=== PATIENT | female | born 1965 | race Caucasian/White ===

== ENCOUNTER → 2021-04-10 02:02 | Outpatient (CLI) | payer BC, SELFPAY ==
[2021-04-10 12:23] LABS: SARS-CoV-2 RNA PCR Negative
== END ==
PROVIDERS: Visit Provider Orthopaedic Surgery
DX: Z01.812 Encounter for preprocedural laboratory examination (principal); Z20.822 Contact with and (suspected) exposure to COVID-19
CPT/HCPCS: C9803; U0003; U0005

== ENCOUNTER 2021-04-13 00:15 | Day surgery (SDC) | payer BC, SELFPAY ==
[2021-04-05 15:16] VITALS: BMI 36.1
--- NOTE | 2021-04-05 15:19 | PC.NURSE ---
Report to the Outpatient Waiting Room, entrance under the green pavilion located off [facility], at time __0600__ on date 04-13-2021. OR Time: ___0730_. - You and your visitor will be asked a series of questions to screen for COVID 19 for your protection. - A mask is required within the hospital. Preoperative COVID Testing Requirements: Covid test 04-10-2021 at 830am. No COVID Test needed if: (proof is required; if not received patient will have Rapid Test prior to entry) - Patient has received COVID Vaccine at least 14 days prior to procedure date or - Patient has positive COVID test result within last 90 days of surgery date. COVID Test needed if above criteria is not met If not COVID vaccinated a COVID test must be conducted within 72 hours of surgery and patient is asked to isolate self from time of testing until procedure. You will go to the [facility] for your COVID testing. The [facility] is located at the corner of [address] [facility]. You will only be called if COVID results are positive and your surgeon may reschedule your elective surgery date. Patients may have clear liquids (water, carbonated beverages, clear teas, apple juice) until 3 hours prior to surgery with a maximum of 20 ounces. - No food from midnight until time of surgery - Infants may have breast milk until 4 hours before surgery, formula 6 hours prior to surgery. - Children will be allowed to drink immediately following surgery. If applicable, please bring a bottle or sippy cup to assist with drinking. Juice, water, soda, and popsicles are readily available. For infants on formula, please bring formula the day of surgery. Pacifiers are allowed. Take the following medications with a SIP of water the morning of surgery: ____Atenolol, Duloxetene, Vilazodone Medications to discontinue per physician Stop all vitamins and supplements 04-10-2021, Stop Aspirin 1-83-36 Date to take last dose Please no make-up, nail hungarian, hairspray, perfume, deodorant, or body powder the day of surgery. No jewelry (including any body piercings) or valuables the day of surgery, leave them at home. Please take a shower or bath the night before, or the morning of, surgery with an antibacterial soap. Wear comfortable, loose fitting clothing. Children are encouraged to wear pajamas. - Jewelry must be removed prior to entering the operating room. Rings and piercings that are not removed may be cut off. - The hospital will not accept responsibility for valuables. - Please leave all valuables, including medications, at home the day of surgery. If you are going home after surgery, a licensed funeral car driver must drive you home. - NO public transportation without another adult. - We recommend that an adult stay with you for 24 hours following discharge. - We also recommend that you do not drive, make important decision, drink alcoholic beverages, or take any drugs that were not prescribed by your health care provider for at least 24 hours after your discharge time. For Pediatric surgeries, we recommend two adults accompany the child home (only one inside the building at this time). One visitor will be allowed to accompany the patient into the hospital. Patients visitor will be instructed to remain with patient at all times or leave the building. We will allow the visitor to come back to the postoperative area when patient is ready. Follow any additional instructions given to you from your surgeon. Telephone instructions given to __Patient and asked if any additional questions and then verbalized understanding. Patient advised to call surgeon office or pre surgery nurse liaison [phone] if any additional questions.
--- NOTE | 2021-04-12 13:18 | P.PNAN_ITS ---
Anes - Initial Pre Proc Eval Procedure: Operation Date: 04/13/21 07:30 Proposed Procedures p Right Arthroscopic Rotator Cuff Repair, Subacromial Decompression - Jamar Rowan MD Date/Time: 04/12/21 13:18 Surgeon: Jamar Rowan MD Pre Op Diagnosis: Right Partial Rotator Cuff Repair Patient Data Age: 55 Gender: F Height: 1.63 m Weight: 95.4 kg Allergies Allergy/AdvReac Type Severity Reaction Status Date / Time latex Allergy Mild Rash Verified 04/05/21 15:05 Home Medications Medication Instructions Recorded Confirmed Type atenolol 25 mg tablet 25 mg PO DAILY 11/17/20 04/05/21 History duloxetine 60 mg capsule,delayed 60 mg PO DAILY 11/17/20 04/05/21 History release vilazodone 40 mg tablet 40 mg PO DAILY 11/17/20 04/05/21 History aspirin [Aspir-81] 81 mg PO DAILY 04/05/21 04/05/21 History Patient hx anesthesia problems: post op nausea/vomiting Family hx anesthesia problems: none Results Review: All pre-operative results and documents have been reviewed as part of the pre-operative evaluation. [facility] Past Medical History Medical History (Updated 04/12/21 @ 13:19 by Ruddy Schmid DO) Anxiety Arthritis of carpometacarpal (CMC) joint of left thumb SALOMON (obstructive sleep apnea) Tachycardia Surgical History Surgical History (Updated 04/12/21 @ 13:19 by Ruddy Schmid DO) History of total knee replacement 2008 Family History Family History Other Family history of malignant neoplasm of bone Family history of malignant neoplasm of male breast Social History Social History Smoking status: Never smoker Alcohol intake: current Living arrangements: with family Spiritual care concerns: No Anes - Eval Final PreProcedure Day of Procedure 04/12/21 13:18 Patient weight: obese Heart: regular rate and rhythm Lungs: clear to auscultation and normal air movement Airway: Mallampati scale class II Neurological: alert and oriented Last oral intake: >/= 8 hours ASA classification: III Emergent: no Anesthetic plan: proceed Anesthesia type and monitoring: general ETT and standard monitoring Results Review: All pre-operative results and documents have been reviewed as part of the pre-operative evaluation. Informed Consent: The patient's anesthetic plan and its attendant risks and benefits were discussed with the patient/family/POA. Questions were solicited and answers provided to the satisfaction of the patient/family/POA.
--- NOTE | 2021-04-12 13:19 | WPDANESPNB ---
Anes - Peripheral Nerve Block Date/Time: 04/12/21 13:19 I have discussed with the patient/family/POA the placement of a peripheral nerve block for post-operative pain management, including associated risks, benefits, complications, and side effects. Alternative methods of post-operative analgesia were detailed. Questions were solicited and answers provided to the satisfaction of the patient/family/POA. Time-Out: A pre-procedural Time-Out was completed immediately before starting the procedure and confirmed: Patient Identification, Site, Procedure, Patient Position and the Availability of Requisite Equipment. Clinical Indications: Acute post-operative pain management requested by the operative surgeon. Nerve Block Insertion Note Anes-nerve block: interscalene right Patient position: supine Skin prep: chlorhexidine Needle: 22 gauge, stimulating, insulated echogenic needle. Needle length: 50 mm Technique: ultrasound Injectate: bupivacaine 0.5% with epi 5 mcg/ml (30cc- no epi) Observations: tolerated well Complications: none Procedure start time:: 722 Procedure end time:: 725
[2021-04-13] VITALS (9 sets, daily range): BP systolic 94–124; BP diastolic 59–80; PULSE 59–75; RESP 12–18; TEMP 36–36.7; O2SAT 96–100
--- NOTE | 2021-04-13 05:59 | ECG_ITS ---
Measurements Intervals [place] Rate: 54 P: 40 NM: 196 QRS: 16 QRSD: 85 T: 21 QT: 452 QTc: 432 Interpretive Statements SINUS BRADYCARDIA POSSIBLE ANTERIOR MYOCARDIAL INFARCTION , OF INDETERMINATE AGE [30 ms Q WAVE IN V3/V4, OR R < 0.2 mV IN V4] NONSPECIFIC ST ABNORMALITY ABNORMAL EKG NO PREVIOUS ECG AVAILABLE FOR COMPARISON Electronically Signed On 04-13-2021 10:34:27 [facility]ISER by Marty Marion M.D.
[2021-04-13] MEDS: ACETAMINOPHEN 500 MG TABLET 1000 MG PO (06:27)
[2021-04-13] MEDS: KETOROLAC 15 MG/ML VIAL (*BKC) IV PUSH (06:37)
[2021-04-13] MEDS: LACTATED RINGERS 1,000 ML 30 ML IV CONT ×2 (06:37→10:06)
[2021-04-13] MEDS: SCOPOLAMINE 1.5 MG PATCH TRANSDERM (06:52)
--- NOTE | 2021-04-13 07:12 | WPDHPUPDATE1 ---
History and Physical Update Update Date/Time: 04/13/21 07:12 History and Physical has been reviewed, including an updated exam of the patient. There are NO changes in the patient's condition. Risks, benefits, and alternatives have been discussed and questions answered. Patient agrees to proceed with procedure.
[2021-04-13] MEDS: ceFAZolin 2 GM/D5W 50 ML 2 GM/50 ML BAG IVPB (07:29)
--- NOTE | 2021-04-13 12:29 | P.OP_ITS ---
Procedure Note - Detailed Date of Procedure 04/13/21 Pre-op Diagnosis Right Shoulder Rotator Cuff Tear Post-op Diagnosis Other (1. Right full thickness rotator cuff tear 2. SLAP tear 3. Subacromial impingement ) Procedure Performed 1. Arthroscopic rotator cuff repair 2. Arthroscopic subacromial decompression 3. Arthroscopic biceps tenodesis Surgeon Jamar Rowan MD Assembly Press Operator Elis Cody PA-C Anesthesia General and Regional ( interscalene block) Findings Significant SLAP tear with degeneration at the attachment. Fraying the anterior labral complex. Biceps tendon was provisionally tenodesed with PDS suture the rotator interval biceps tendon was released from the superior labrum. The subscapularis was intact. The supraspinatus had a complete small tear, without retraction. This was expanded to medium size tear with gentle debridement. The articular cartilage was healthy. The posterior labrum was normal. The capsule showed no significant contracture. Significant bursa was debrided. Repair with 2 tunnel rip stop technique. The biceps tenodesis was completed with another bone tunnel anterior and 2 locking sutures. Acromioplasty was performed as there was evidence of external impingement. Description of Procedure Physician electrician assistant, Elis Cody PA-C, required for surgery; including patient positioning, draping, arthroscopic camera operation, maintaining instrument position, suture retrieval, wound closure, and dressing and sling placement. Preoperative antibiotics were given. An interscalene block was administered in the preoperative area. The patient was bought brought to the operating room. A general anesthetic was administered. The patient was carefully positioned in the beach chair position. The head and neck were carefully positioned. The non operative extremity was also carefully positioned. The shoulder was prepped and draped in the usual sterile fashion. Examination was performed. Standard posterior and anterior arthroscopic portals were established. Inflow achieved with the arthroscopic pump using saline and epinephrine. The glenohumeral joint was carefully inspected. The biceps tenodesed and released from the superior labrum which was debrided. Attention was turned to the subacromial space. A complete bursectomy was performed. The rotator cuff and footprint were lightly debrided. A modest acromioplasty was performed. The tear configuration was carefully assessed. At this point, 2 tunnels were created at the rotator cuff. The ArthroTunneler technique was utilized. Three sutures were passed through each tunnel. All sutures were then passed through the cuff tissue. The sutures were tied arthroscopically. An additional tunnel was created for the biceps tenodesis. Two locking loop sutures were passed through the tendon and tied arthroscopically. The arthroscopic instruments were removed. The wounds were closed with 3-0 Monocryl subcuticular suture and steri strips. There were no complications. A sling was applied and the patient brought to the recovery room. Estimated Blood Loss -10.0 Pathology None sent Complications No immediate complications Condition Stable Disposition PACU
== END 2021-04-13 12:07 | disposition home or self-care (01) ==
PROVIDERS: PCP Family Medicine; Visit Provider Orthopaedic Surgery
PROC: (CPT 29805; principal; 2021-04-13 07:30)
DX: M75.101 Unspecified rotator cuff tear or rupture of right shoulder, not specified as traumatic (principal); M75.81 Other shoulder lesions, right shoulder; M75.41 Impingement syndrome of right shoulder; G89.18 Other acute postprocedural pain; G47.33 Obstructive sleep apnea (adult) (pediatric); F41.9 Anxiety disorder, unspecified; E66.9 Obesity, unspecified; Z68.36 Body mass index [BMI] 36.0-36.9, adult
CPT/HCPCS: 29827; 29828; 29826; 64415; 93005; A4565; A9270; C9803; J0330; J0690; J1100; J1200; J1885; J2250; J2405; J2704; J3010; J7120; U0003; U0005

== ENCOUNTER 2023-05-02 12:06 | Outpatient (CLI) | payer BC, SELFPAY ==
--- NOTE | 2023-05-02 12:26 | ECG_ITS ---
Measurements Intervals [place] Rate: 69 P: 40 PA: 185 QRS: 12 QRSD: 97 T: 18 QT: 391 QTc: 419 Interpretive Statements SINUS RHYTHM LOW QRS VOLTAGE IN PRECORDIAL LEADS BORDERLINE R WAVE PROGRESSION, ANTERIOR LEADS CONSIDER INFERIOR INFARCT, AGE INDETERMINATE BASELINE ARTIFACT- I, II, AVR, AVL, AVF, V3 ABNORMAL ECG COMPARED TO ECG 04/13/2021 07:15:20 SINUS RHYTHM NOW PRESENT Electronically Signed On 05-02-2023 12:57:40 CDT by Bib Carmona D.O.
== END 2023-05-02 12:07 | disposition home or self-care (01) ==
LOC: ANHSURGERY 12:12
PROVIDERS: PCP Family Medicine; Visit Provider Orthopaedic Surgery
DX: I10 Essential (primary) hypertension (principal); Z01.818 Encounter for other preprocedural examination; R94.31 Abnormal electrocardiogram [ECG] [EKG]
CPT/HCPCS: 93005

== ENCOUNTER 2023-05-05 01:28 | Day surgery (SDC) | payer BC, SELFPAY ==
[2023-04-30 08:44] VITALS: BMI 36.2
--- NOTE | 2023-04-30 08:49 | PC.NURSE ---
Report to the Outpatient Waiting Room, entrance under the green pavilion located off [facility], at time 1:00 pm on date 05/05/23. Planned Procedure Time: 3:00pm. Time changes happen often and if your time is changed the preop area will call you the afternoon before. - You and your visitor will be asked to self-screen and do not enter if you have any COVID symptoms. - A mask is optional within the hospital at this time. Patients may have clear liquids (water, carbonated beverages, clear teas, apple juice) until 3 hours prior to surgery with a maximum of 20 ounces. - No food from midnight until time of surgery (20 ounces before 12:00 noon) - Infants may have breast milk until 4 hours before surgery, infant formula 6 hours prior to surgery. - Children will be allowed to drink immediately following surgery. If applicable, please bring a bottle or sippy cup to assist with drinking. Juice, water, soda, and popsicles are readily available. For infants on formula, please bring formula the day of surgery. Pacifiers are allowed. Take the following medications with a SIP of water the morning of surgery: ___atenolol, duloxetine, vilazodone DO NOT STOP ANY OF YOUR OTHER PRESCRIPTION MEDICATIONS PRIOR TO SURGERY ?EXCEPT THE FOLLOWING Medications to discontinue per physician __vitamins and supplements for 3 days prior Date to take last dose Please no make-up, nail gibraltarian, hairspray, perfume, deodorant, or body powder the day of surgery. No jewelry (including any body piercings) or valuables the day of surgery, leave them at home. Please take a shower or bath the night before, or the morning of, surgery with an antibacterial soap. Wear comfortable, loose fitting clothing. Children are encouraged to wear pajamas. - Jewelry must be removed prior to entering the operating room. Rings and piercings that are not removed may be cut off. - The hospital will not accept responsibility for valuables. - Please leave all valuables, including medications, at home the day of surgery. If you are going home after surgery, a licensed warehouse delivery driver must drive you home. - NO public transportation without another adult if you receive anesthesia. - We recommend that an adult stay with you for 24 hours following discharge. - We also recommend that you do not drive, make important decision, drink alcoholic beverages, or take any drugs that were not prescribed by your health care provider for at least 24 hours after your discharge time. For Pediatric surgeries, we recommend two adults accompany the child home. Follow any additional instructions given to you from your surgeon. If you or anyone in your household have experienced Covid symptoms in the past week, please notify your surgeon or the nurse liaison at the phone number below for possible testing. Telephone instructions given to __patient___and asked if any additional questions and then verbalized understanding. Patient advised to call surgeon office or pre surgery nurse liaison [phone] if any additional questions.
[2023-05-05] VITALS (9 sets, daily range): BP systolic 114–132; BP diastolic 66–83; PULSE 81–102; RESP 12–18; TEMP 36.7–37.1; O2SAT 97–100
--- NOTE | 2023-05-05 11:55 | WPDHPUPDATE1 ---
History and Physical Update Update Date/Time: 05/05/23 11:55 History and Physical has been reviewed, including an updated exam of the patient. There are NO changes in the patient's condition. Risks, benefits, and alternatives have been discussed and questions answered. Patient agrees to proceed with procedure.
[2023-05-05] MEDS: ACETAMINOPHEN 500 MG TABLET 1000 MG PO (13:15)
[2023-05-05] MEDS: LACTATED RINGERS 1,000 ML 30 ML IV CONT (13:25)
[2023-05-05] MEDS: KETOROLAC 15 MG/ML VIAL (*BKC) IV PUSH (14:21)
[2023-05-05] MEDS: ceFAZolin 2 GM/D5W 50 ML 2 GM/50 ML BAG IVPB (14:46)
[2023-05-05] MEDS: BUPIVACAINE/EPINEPHRINE 0.5% 30 ML VIAL 20 ML INFILTRATE (14:59)
[2023-05-05] MEDS: SCOPOLAMINE 1 MG PATCH 1 PATCH TRANSDERM (15:36)
--- NOTE | 2023-05-05 16:11 | W.PM.PROC2 ---
Procedure Note - Detailed Date of Procedure 05/05/23 Pre-op Diagnosis left knee medial meniscus tear Post-op Diagnosis Same Procedure Performed Arthroscopic partial medial meniscectomy, left knee. Surgeon Jamar Rowan MD Anesthesia General Findings Extensive complex posterior horn meniscus tear. Subtotal meniscectomy of the posterior horn. Grade 3 changes on the medial femur and grade 2 changes on the tibia. Lateral compartment benign. Patella grade 2/3 changes. Trochlea grade 1 changes. ACL intact. Mild synovitis. Description of Procedure The patient was identified and the surgical site confirmed and signed in the preoperative holding area. Antibiotics were started per protocol, and the patient was brought to the operative room and transferred to the OR table. A general anesthetic was administered. Supine position with the operative lower extremity position in the leg mcrae after placement of a well padded tourniquet. The leg support was lowered and the contralateral limb was supported with a soft bolster. The knee was prepped and draped in the usual sterile fashion. A time-out was performed. The portal sites were marked and infiltrated with 0.5% Marcaine 20 mL. The limb was exsanguinated and the tourniquet inflated to 300 mL Hg. Standard inferolateral and inferomedial portals were established. Inflow was obtained with the saline pump. The camera was introduced. Diagnostic inspection of the joint was accomplished. The meniscus was debrided with the arthroscopic shaver and punches until stable. Gentle chondroplasty performed on the medial femoral condyle. The arthroscopic instruments were removed. The tourniquet released and wounds closed with subcutaneous 4-0 Monocryl absorbable suture. Steri strips and a sterile dressing were applied. A light elastic wrap was placed. The patient was extubated and brought to the recovery room in stable condition. Estimated Blood Loss 5 Drains No Complications No immediate complications Condition Stable Disposition PACU [facility] Billing Surgery - Charge Forward: Surgery Billing
--- NOTE | 2023-05-07 07:58 | WPDANESEPPF ---
Anes - Initial Pre Proc Eval Procedure: Operation Date: 05/05/23 15:00 Proposed Procedures p Left Knee Arthroscopy, Partial Medial Meniscectomy - Jamar Rowan MD Date/Time: 05/07/23 07:58 Surgeon: Jamar Rowan MD Pre Op Diagnosis: left knee medial meniscus tear Patient Data Age: 58 Gender: F Height: 1.57 m Weight: 89.5 kg Last Vital Signs Temp 37.1 C 05/05/23 15:31 Pulse 81 05/05/23 16:55 Resp 16 05/05/23 16:55 BP 116/67 05/05/23 16:55 Pulse Ox 98 05/05/23 16:10 O2 Del Method Room Air 05/05/23 16:10 O2 Flow Rate 8 05/05/23 15:45 Allergies Allergy/AdvReac Type Severity Reaction Status Date / Time latex Allergy Mild Rash Verified 05/05/23 13:20 Home Medications Medication Instructions Recorded Confirmed Type atenolol 25 mg tablet 25 mg PO DAILY 11/17/20 05/05/23 History duloxetine 60 mg capsule,delayed 60 mg PO DAILY 11/17/20 05/05/23 History release (Cymbalta) vilazodone 40 mg tablet (Viibryd) 40 mg PO DAILY 11/17/20 05/05/23 History cyclobenzaprine 10 mg tablet 10 mg PO HS PRN muscle spasms 04/30/23 05/05/23 History duloxetine 30 mg capsule,delayed 30 mg PO DAILY 04/30/23 05/05/23 History release multivitamin 1 tablet PO DAILY 04/30/23 05/05/23 History tramadol 50 mg tablet 50 mg PO Q6H PRN pain 04/30/23 05/05/23 History hydrocodone 5 mg-acetaminophen 325 1 - 2 tablet PO Q4-6H PRN pain #30 05/05/23 Rx mg tablet tabs Patient hx anesthesia problems: none Family hx anesthesia problems: none Results Review: All pre-operative results and documents have been reviewed as part of the pre-operative evaluation. [facility] Past Medical History Medical History Anxiety Arthritis of carpometacarpal (CMC) joint of left thumb SALOMON (obstructive sleep apnea) Tachycardia Surgical History Surgical History History of repair of right rotator cuff (~04/13/21) w/Subacromial Decompression History of total knee replacement 2009 right Family History Family History Other Family history of malignant neoplasm of bone Family history of malignant neoplasm of male breast Social History Social History Smoking status: Never smoker Alcohol intake: current Do You Feel Safe in your Home?: Yes Lack of Transportation: No Lack of Food: Never True Current Housing: I Have Housing Concerned About Future Housing: No Difficulty Paying Gas/Electric Bills: No Difficulty Paying for Meds: No Currently Unemployed: No Education: Associate Degree Difficulty w/ Childcare or Family Care: No Living arrangements: with family Spiritual care concerns: No Comments late entry Anes - Eval Final PreProcedure Day of Procedure 05/07/23 07:58 Patient weight: obese Heart: regular rate and rhythm Lungs: clear to auscultation Airway: Mallampati scale class II Neurological: alert and oriented Last oral intake: >/= 8 hours ASA classification: III Emergent: no Anesthetic plan: proceed Anesthesia type and monitoring: general LMA and standard monitoring Results Review: All pre-operative results and documents have been reviewed as part of the pre-operative evaluation. Informed Consent: The patient's anesthetic plan and its attendant risks and benefits were discussed with the patient/family/POA. Questions were solicited and answers provided to the satisfaction of the patient/family/POA.
== END 2023-05-05 17:06 | disposition home or self-care (01) ==
PROVIDERS: PCP Family Medicine; Visit Provider Orthopaedic Surgery
PROC: (CPT 29870; principal; 2023-05-05 15:00)
DX: S83.232A Complex tear of medial meniscus, current injury, left knee, initial encounter (principal); F41.9 Anxiety disorder, unspecified; G47.33 Obstructive sleep apnea (adult) (pediatric); E66.9 Obesity, unspecified; Z68.36 Body mass index [BMI] 36.0-36.9, adult; Z79.84 Long term (current) use of oral hypoglycemic drugs; Z79.891 Long term (current) use of opiate analgesic; Z98.890 Other specified postprocedural states; Z80.8 Family history of malignant neoplasm of other organs or systems; Z80.3 Family history of malignant neoplasm of breast; X58.XXXA Exposure to other specified factors, initial encounter
CPT/HCPCS: 29881; 93005; A9270; J0690; J1100; J1885; J2250; J2405; J2704; J3010; J7120

== ENCOUNTER 2024-11-01 07:35 | Outpatient (CLI) | payer OTHER, SELFPAY ==
--- NOTE | ~2024-11-01 | CT_ITS ---
EXAMINATION: CT_LELTCWO_CT DATE: 11/01/2024 07:54 INDICATION: Left knee osteoarthritis. Preoperative planning. TECHNIQUE: Computed tomography (CT) of the left lower limb was performed without intravenous contrast. Automated exposure control and iterative reconstruction technique were employed. The dose-length product was 1716.70 mGy-cm. COMPARISON: Left knee radiographs 06/07/2024 FINDINGS: There is mild osteoarthritis of the hips. The left knee demonstrates moderate osteoarthritis of the medial compartment including osteochondral lesions of the femoral condyle and tibial condyle. There is mild osteoarthritis of the lateral and patellofemoral compartments. There is a small knee joint effusion. IMPRESSION: 1. Moderate left knee osteoarthritis. 2. Small left knee joint effusion. Reviewed, dictated and finalized at location E.
== END 2024-11-01 07:36 | disposition home or self-care (01) ==
LOC: ANHIMG 07:35
PROVIDERS: PCP Family Medicine; Visit Provider Orthopaedic Surgery
DX: M17.12 Unilateral primary osteoarthritis, left knee (principal); M25.462 Effusion, left knee
CPT/HCPCS: 73700

== ENCOUNTER 2024-12-22 11:40 | Outpatient (CLI) | payer OTHER, SELFPAY ==
--- OUTSIDE RECORDS SUMMARY | 2024-12-22 13:14 | XMS_ITS | Encounter Summary ---
Author Organization [facility] Address [address] [place] [address] Care Team Providers Care Oracle Fusion Developer Name Role Phone Tana Hester Primary Care Provider [phone] Encounter Details Date Type Department Care Team (Late st Contact Info) Description 02/14/2021 Lab Requisition [facility] Laboratory Services [address] [place] [address] [place] [address] [facility] [address] [place] [id number] Social History Tobacco Use Types Packs/Day Years Used Date Smoking Tobacco: Never Assessed Comments Unknown Sex and Gender Information Value Date Recorded Sex Assigned at Not on file Legal Sex Female 11:29 PM CDT Gender Identity Not on file Sexual Orientation Not on file documented as of this encounter Plan of Treatment Not on file documented as of this encounter Procedures Procedure Name Priority Date/Time Associated Diagnosis Comments 2019 NOVEL CORONAVIRUS (COVID-19) PCR DETECTION Routine 02/14/2021 9:15 PM NURSE ADVISOR documented in this encounter Results * 2019 NOVEL CORONAVIRUS (COVID-19) PCR DETECTION (02/14/2021 9:15 PM NURSE ADVISOR) COVID-19 PCR NOT DETECTED Not Detected 02/15/19 2:10 AM NURSE ADVISOR [facility] PERFORMING LAB [facility] 02/15/2021 2:10 AM NURSE ADVISOR [facility] Upper Respiratory Collection / Unknown 02/14/2021 9:15 PM NURSE ADVISOR 02/14/2021 9:25 PM NURSE ADVISOR Narrative [facility] - 02/15/2021 2:10 AM NURSE ADVISOR This test has been authorized by the FDA under an Emergency Use Authorization for use by authorized laboratories. This test has been validated in accordance with the FDA's guidance regarding Coronavirus Disease-2019 testing. Optimum specimen types and timing for peak viral levels during infection have not been determined. A negative RT-PCR result does not rule out infection with the 2019-Novel Coronavirus. Phil Jeong MD MICROBIOLOGY - GENERAL ORDER STEVEN Final Result [facility] CLIA# [id number] [place] [address] documented in this encounter Visit Diagnoses Not on filedocumented in this encounter Care Teams Oracle Fusion Developer Relationship Specialty Start Date End Date Tana Hester DO PCP - General Family Practice 10/19/19 documented as of this encounter
--- OUTSIDE RECORDS SUMMARY | 2024-12-22 13:14 | XMS_ITS | Clinical Summary ---
Author Organization [facility] Address [address] [place] [address] Phone Care Team Providers Care [employer] Faculty Member Name Role Phone Unavailable Primary Care Provider Unavailabl e Allergies Active Allergy Reactions Criticality Noted Date Comments Latex Unknown Medications Vilazodone HCl (VIIBRYD) 20 MG Tablet Take 40 mg by mouth daily. Active LORazepam (ATIVAN) 0.5 MG Tablet Take 0.5 mg by mouth as needed for Anxiety. Active DULoxetine (CYMBALTA) [address] Particles TAKE 1 CAPSULE EVERY DAY 90 Cap 1 05/18/2015 Active Elastic Bandages & Supports (LUMBAR BACK BRACE/SUPPORT PAD) MiscIndications :Radiculitis,Sa croiliac joint pain Lumbar support brace/ LSO. Wear daily p.r.n.. Do not wear at night. 1 Each 0 05/22/2016 Active Misc Natural Products (GLUCOS-CHONDRO IT-MSM COMPLEX) Tablet 02/11/2008 Active Fexofenadine-Ps eudoephedrine (BRENNAN-D PO) Take by mouth. Active atenolol (TENORMIN) 25 MG Tablet Take 25 mg by mouth. 01/31/2023 Active Active Problems Problem Noted Date Diagnosed Date Depression 08/31/2018 Hyperlipidemia 10/25/2017 Gastroesophageal reflux disease 11/14/2015 Anxiety 05/15/2015 Non morbid obesity 05/15/2015 Seasonal allergies 05/15/2015 Major depressive disorder, recurrent episode, mo derate 03/08/2015 Immunizations Immunization Administration Dates Next Due Influenza Vaccine greater than 3 yrs 02/10/2013 Family History Medical History Relation Name Comments Stroke Father Abdominal Aortic Aneurysm Mother Breast Cancer Mother Depression Mother Relation Name Status Comments Father Mother Social History Tobacco Use Types Packs/Day Years Used Date Smoking Tobacco: Never Smokeless Tobacco: Never Alcohol Use Standard Drinks/Week Comments Yes 0 (1 standard drink = 0.6 oz pure alcohol) Patient consumes two glass of wine on the average of once monthly PHQ-2 Answer Date Recorded PHQ-2 Score 0 10/24/2018 Sexually Active Control Partners Comments Yes Comments No Sex and Gender Information Value Date Recorded Sex Assigned at Not on file Legal Sex Female 11:43 PM CDT Gender Identity Not on file Sexual Orientation Not on file Last Filed Vital Signs Vital Sign Reading Time Taken Comments Blood Pressure 116/64 05/12/2023 1:26 PM CDT Pulse 76 05/12/2023 1:26 PM CDT Temperature 35.9 C (96.6 F) 05/12/2023 1:26 PM CDT Respiratory Rate 16 05/12/2023 1:26 PM CDT Oxygen Saturation 99% 05/12/2023 1:26 PM CDT Inhaled Oxygen Concentration - - Weight 95 kg (209 lb 6.4 oz) 08/31/2018 8:26 AM CDT Height 160 cm (5' 3) 08/31/2018 8:26 AM CDT Body Mass Index 37.09 08/31/2018 8:26 AM CDT Plan of Treatment Health Maintenance Due Date Last Done Comments Pap Smear 1985 Cervical Cancer Screening (CCS) 1994 HPV/Cotest 1994 Cologuard 2009 Immunochemical Fecal Occult Blood 2009 Pneumococcal Immunization (50+ years) (1 of 1 - PCV) 2014 Zoster Immunization (1 of 2) 2014 Mammogram 02/07/2024 02/06/2023, 01/11, 02/01/2022, Additional history exists Influenza Immunization (#1) 10/11/202410/11, 11/08/2021, 11/11/2020, Additional history exists SARS-COV-2 Immunization ( season) 2024 11/20/2020, 02/29/2020, 02/07/2020 Colonoscopy 11/08/2029 11/09/2019 Colorectal Cancer Screening 11/08/2029 Respiratory Syncytial Virus (RSV) Immunization (Adult) (1 - 1-dose 75+ series) 05/02/2039 Hepatitis C Virus (HCV) Screening Completed 09/25/2017 TdaP Immunization Completed 08/01/2021, 07/07/2013 Hepatitis B Immunization Aged Out No longer eligible based on patient's age to complete this topic Human Papillomavirus (HPV) Immunization Aged Out No longer eligible based on patient's age to complete this topic Meningococcal Immunization (ACWY) Aged Out No longer eligible based on patient's age to complete this topic Rotavirus Immunization Aged Out No lo nger eligible based on patient's age to complete this topic Procedures Procedure Name Priority Date/Time Associated Diagnosis Comments MAMMOGRAM BILATERAL GENERIC 12/04/2020 12:00 AM CDT HEPATITIS C ANTIBODY Routine 09/25/2017 Encounter for hepatitis C screening test for low risk patient from Last 3 Months or Most Recently Relevant to Health Maintenance Results * MAMMOGRAM BILATERAL MISCELLANEOUS (12/04/2020 12:00 AM CDT) 12/04/2020 us Not On File Provider IMG MAMMO ORDERABLES Final Result SCAN * HEPATITIS C ANTIBODY (09/25/2017) Blood specimen (specimen) us Jose David Manjarrez MD CHEMISTRY ORDERABLES Maria M l Result from Last 3 Months or Most Recently Relevant to Health Maintenance Insurance [facility]
--- OUTSIDE RECORDS SUMMARY | 2024-12-22 13:14 | XMS_ITS | Clinical Summary ---
Author Organization [facility] Medical Office Building B Address [address] [place] [address] Care Team Providers Care Mechanical Service Specialist Name Role Phone Anca Watkins MD Unavailable [phone] Avery Moreno MD Unavailable Rob Vaughn MD Unavailable Liliane Mccabe MD Primary Care Provide r Allergies Active Allergy Reactions Criticality Noted Date Comments Latex Hives,Rash Reaction: Hives, Skin Rash, Medications glucosamine HCl 1,500 mg tablet Take by mouth nightly Active DULoxetine DR (CYMBALTA) 60 mg capsule Take 1 capsule (60 mg total) by mouth nightly Active flaxseed oil oil 2,000 mg 2 (two) times a day Active multivitamin with minerals (HAIR,SKIN AND NAILS ORAL) Take by mouth nightly Active loratadine (CLARITIN) 10 mg tablet Take 1 tablet (10 mg total) by mouth nightly Active atenoloL (TENORMIN) 25 mg tablet Take 1 tablet (25 mg total) by mouth daily Active traZODone (DESYREL) 50 mg tablet Take 0.5-1 tablets (25-50 mg total) by mouth nightly as needed 022 Active Restasis 0.05 % ophthalmic emulsion 023 Active vilazodone (VIIBRYD) 40 mg tablet 022 Active cyclobenzaprine (FLEXERIL) 10 mg tablet Take 1 tablet (10 mg total) by mouth daily as needed for muscle spasms 30 tablet 023 Active traMADoL (ULTRAM) 50 mg tabletIndications:Chron ic bilateral low back pain with bilateral sciatica Take 1 tablet (50 mg total) by mouth 2 (two) times a day as needed for pain 60 tablet 5 023 Active senna-docusate (PERICOLACE) 8.6-50 mg Take 1-2 tablets by mouth daily For management of chronic constipation. 023 Active simethicone (GAS-X) 125 mg capsule Take one tablet up to 4 times daily for gas and bloating. 023 Active metoclopramide (REGLAN) 10 mg tablet Take 1 Tablet (10 mg) by mouth 2 times daily as needed for more severe constipation and abdominal fullness 60 tablet 2 023 Active diclofenac sodium (VOLTAREN) 1 % gel [address] (CYMBALTA) 30 mg capsule Take 1 capsule (30 mg total) by mouth daily Take one tablet daily with the 60 mg tablet 024 Active omega-3 fatty acids 500 mg capsule Take 500 mg by mouth 3 (three) times a day Active valACYclovir (VALTREX) 1 gram tablet Take 1 Tablet (1,000 mg) by mouth daily. 30 tablet 2 024 Active dicyclomine (BENTYL) 20 mg tablet 024 Active aspirin 81 mg enteric coated tabletIndications:Pure hypercholesterolemia Take 1 tablet (81 mg total) by mouth daily 90 tablet 1 024 Active TIRZEPATIDE, WEIGHT LOSS, SUBQ Inject under the skin Active meloxicam (MOBIC) 15 mg tablet Take 1 tablet (15 mg total) by mouth daily 024 Active Active Problems Problem Noted Date Diagnosed Date Valvular heart disease 09/03/2024 Overview (09/07/2024): Mild prolapse of the posterior mitral valve leaflet with [id number] MR, mild TR on echo 24 Jun 2024. LVEF of 60-65%. Patient told me she had mild mitral valve prolapse also on an echo over 20 years ago. On atenolol 25 mg daily. Assessment & Plan (09/07/2024 11:50 AM CDT): I showed patient the latest echo pictures. 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 We discussed that it seems the mitral valve prolapse has not worsened in those 20 years since the last echocardiogram It appears that the mitral regurgitation is likely mild on my review. No change in medical regimen here as LV function looked quite good. Besides, she had no chest pain or shortness breath anyway pushing the ultrasound machine for Radiology at [facility]. BMI 29.0-29.9,adult 05/18/2024 Encounter for wellness examination 05/17/2024 Assessment & Plan (05/18/2024 8:32 AM CDT): Labs reviewed and discussed Colonoscopy up to date, due 2027 Pap smear up to date, managed by ob Mammo up to date, managed by ob Zoster vaccine-she will check with her insurance and if they cover it, she will come back for a nurse visit F/u in 1 year for annual Obstructive sleep apnea 01/23/2024 Assessment & Plan (05/17/2024 12:10 PM CDT): Chronic Stable Controlled on cpap Gastroparesis 01/15/2024 NSAID long-term use 01/13/2023 Irritable bowel syndrome wit h both constipation and diarrhea 08/14/2022 Assessment & Plan (05/17/2024 12:09 PM CDT): Chronic Stable Cont management as per gi On stool softener Degenerative disc disease, cervical 03/21/2022 Cervical radiculopathy 02/27/2022 Cervicalgia 02/27/2022 Cervical myofascial pain syndrome 02/27/2022 DDD (degenerative disc disease), lumbar 07/27/19 Lumbar facet arthropathy 07/26/2021 Lumbar radiculopathy 07/26/2021 Chronic bilateral low back pain with bilateral s ciatica 06/13/2021 Assessment & Plan (05/17/2024 12:10 PM CDT): Chronic Managed by pain management on tramadol Assessment & Plan (06/13/2021 1:40 PM CDT): Reviewed old MRI with patient today. Patient already has a ed appt with Pain mgmt. Meloxicam prescribed. Delayed gastric emptying 05/30/2021 Palpitations 11/16/2020 Overview (09/07/2024): Cardiac monitoring in June 2024 showed no significant findings when patient had 9 patient activated events for fluttering/skipped beats and also rapid heartbeats. On atenolol 25 mg daily. Assessment & Plan (09/07/2024 11:51 AM CDT): Doing well on low-dose beta-vesta. We discussed that her symptoms on monitor technician in June 2024 were not associated with anything significant. No change in medical regimen here. Patient denies excessive caffeine use or high energy drinks. No significant PAC or PVC count anyway on the latest monitor. Assessment & Plan (05/18/2024 8:28 AM CDT): Chronic Worsening over the past 6 months Recent labs were wnl 14 day monitor technician and TTE Continue atenolol as is Referral to cardiology F/u pending above results Assessment & Plan (11/16/2020 11:29 AM CDT): Patient's accelerated heart rates seen at on her sleep study possibly related to a rebound effect of her apnea. She appears to have appropriate heart rate variability. She has had a long history of resting heart rates in the 90s. There has been no evidence that she has had dysrhythmia as a cause for this. Even if the patient had episodes of PAF as a consequence of her SALOMON with a potential chads Vasc score of 1, conservative management is reasonable. A plan to evaluate cardiac structure and performance as her resting electrocardiogram is normal, if structure and performance are normal puts her in a very safe risk group in conservative management would be suggested. Will contact her by phone with normal results and she will contact me for any palpitations at become greater than a nuisance. Chronic constipation 05/31/2020 History of 2019 novel coronavirus disease (COVID -19) 12/30/2019 Overview (04/03/2020): Dx 12/27/2019 Assessment & Plan (12/30/2019 9:51 AM CHIEF CLIENT OFFICER): Symptoms worsening slightly. Patient to use qrsp-hcx-avufyar medications to treat symptoms. If symptoms continue to worsen or she develops any worrisome signs or symptoms please go to nearest emergency room. FMLA paperwork will be completed. Myalgia 11/30/2019 Arthralgia 10/28/2019 Assessment & Plan (04/10/2022 9:41 AM CHIEF CLIENT OFFICER): Pain worsening, would like to consult with Rheumatology. Referral placed. Cont Pain mgmt. Assessment & Plan (12/05/2019 1:29 PM CDT): Add Flexeril nightly prn. Cont Meloxicam. Assessment & Plan (10/28/2019 2:05 PM CDT): Multiple myalgias. I talked her about getting lab work for workup of rheumatoid. Patient is agreeable. It does sound like she has a history of degenerative disc disease and back pain. Which may indicate more of an osteoarthritis. She was also agreeable to try a different anti-inflammatory. We discussed risks and benefits and the difference between taking it daily verses on a p.r.n. basis. She mostly wants it to take on an as-needed basis. Will try meloxicam daily p.r.n. she is also now due for a DEXA scan so I ordered that as well today. I had her schedule follow-up in 1 month. TMJ (dislocation of temporomandibular joint) Overview (03/10/2019): Managed by dentist Hyperlipidemia 10/25/2017 Assessment & Plan (05/17/2024 12:08 PM CDT): LDL goal of < 100, continue dietary modifications and daily exercise. lipid panel reviewed and discussed Assessment & Plan (11/05/2023 12:57 PM CDT): LDL near goal of < 100, continue dietary modifications and daily exercise. Repeat lipid panel in 6 months Assessment & Plan (04/14/2023 8:14 AM CHIEF CLIENT OFFICER): LDL near goal of < 100, continue dietary modifications and daily exercise. Assessment & Plan (04/10/2022 9:42 AM CHIEF CLIENT OFFICER): LDL near goal of < 100, low chol diet recommended. Assessment & Plan (06/13/2021 1:39 PM CDT): LDL near goal of < 100. Low chol diet recommended. Patient declines a statin at this time. Assessment & Plan (04/09/2021 11:58 AM CHIEF CLIENT OFFICER): Aspirin for prevention. Assessment & Plan (04/03/2020 9:56 AM CHIEF CLIENT OFFICER): Low-cholesterol diet recommended. Continue ejsb-ojj-txutvik omega-3 fatty acids as directed. Assessment & Plan (03/10/2019 11:09 AM CHIEF CLIENT OFFICER): Low chol diet recommended. Seasonal allergies 05/15/2015 Assessment & Plan (03/10/2019 11:09 AM CHIEF CLIENT OFFICER): Stable. Cont. Current meds. Major depressive disorder, recurrent episode, mo derate 03/08/2015 Overview (03/10/2019): Managed by psychiatry-Dr. Watkins Assessment & Plan (05/17/2024 12:09 PM CDT): Managed by psychiatry. Assessment & Plan (11/05/2023 12:55 PM CDT): Managed by psychiatry. Assessment & Plan (03/10/2019 11:09 AM CHIEF CLIENT OFFICER): Managed by psychiatry. Mitral valve prolapse 06/26/2013 Overview (05/17/2016): Mitral valve prolapse Assessment & Plan (05/18/2024 8:28 AM CDT): Chronic Stable Will get TTE for monitoring and referral to cardiology given associated palpitations Generalized anxiety disorder 04/08/2013 Overview (10/28/2019): Managed by psychiatry-Dr. Watkins Assessment & Plan (05/17/2024 12:09 PM CDT): Managed by psychiatry. Assessment & Plan (11/05/2023 12:55 PM CDT): Managed by psychiatry. Assessment & Plan (03/10/2019 11:09 AM CHIEF CLIENT OFFICER): Managed by psychiatry. Resolved Problems Problem Noted Date Diagnosed Date Resolved Date Encounter to establish care 11/05/2023 05/18/2024 Assessment & Plan (11/05/2023 12:56 PM CDT): Medical history reviewed and discussed F/u in 6 months for annual with labs Gallstones 05/31/2020 06/21/2020 Gallstones 04/03/2020 07/26/2020 Assessment & Plan (04/03/2020 9:57 AM CHIEF CLIENT OFFICER): No acute abdominal pain today. Patient requests referral to box person. Referral given. Class 1 obesity due to exces s calories with serious comorbidity and body mass index (BMI) of 30.0 to 30.9 in adult 11/30/2019 01/23/2024 Assessment & Plan (11/07/2023 9:23 AM CDT): Weight reduction, daily exercise and dietary modifications recommended., as obesity can complicate their hypercholesterolemia Assessment & Plan (04/14/2023 8:14 AM CHIEF CLIENT OFFICER): Weight reduction, daily exercise and dietary modifications recommended., as obesity can complicate their hypercholesterolemia Assessment & Plan (06/13/2021 1:38 PM CDT): Weight reduction, daily exercise and dietary modifications recommended. Assessment & Plan (04/09/2021 11:59 AM CHIEF CLIENT OFFICER): Weight reduction, daily exercise and dietary modifications recommended. Assessment & Plan (12/05/2019 1:29 PM CDT): Weight reduction, daily exercise and dietary modifications recommended. Blood in stool 10/26/2019 11/30/2019 Overview (10/26/2019): Added automatically from request for surgery [id number] Gastroesophageal reflux disease 11/14/2015 03/10/2019 Tachycardia 06/26/2013 03/10/2019 Overview (05/17/2016): Tachycardia Encounters Date Type Department Care Team Description 11/01/2024 Orders Only [facility] Health Information Management [address] [place] [address] Scanning, Provider 10/13/2024 4:43 PM CDT - 10/13/2024 11:59 PM CDT Hospital Encounter [facility] [address] [place] [id number] Cervical radicular pain Discharge Disposition: Discharge to home or self care 10/13/2024 8:16 AM CDT - 10/13/2024 11:59 PM CDT Hospital Encounter [facility] [address] [place] [id number] Unilateral primary osteoarthritis, left knee; Tachycardia, unspecified Discharge Disposition: Discharge to home or self care 10/13/2024 8:15 AM CDT Lab [address] [id number] 10/02/2024 10:50 AM CDT - 10/02/2024 11:59 PM CDT Hospital Encounter [facility] [address] [place] [phone] Cervical radicular pain Discharge Disposition: Discharge to home or self care from Last 3 Months Immunizations Immunization Administration Dates Next Due Influenza, Trivalent, IM (MDV) 3,11/08/2021,11/10/2020,2019,11/12/2017,02/10/2013 Influenza, Unspecified 11/15/2023,2020,11/02/2019,2018 Pfizer SARS-CoV-2 Monovalent Vaccination (12+ Yrs) PURPLE 02/29/2020,02/29/2020,02/07/2020,2019 Tdap 08/01/2021,07/07/2013 Surgical History Surgery Date Site/Laterality Comments ABLATION 02/11/2008 - 02/09/2009 ablasion TOTAL KNEE ARTHROPLASTY Right total knee replacement OTHER SURGICAL HISTORY 02/10/1994 - 02/09/1995 : 9 hr labor COLONOSCOPY 11/09/2019 1st TONSILLECTOMY 02/11/1980 - 02/09/1981 BREAST BIOPSY 12/21/2019 Right surgical benign bx age 31 and 32 CHOLECYSTECTOMY JOINT REPLACEMENT rt tkr 2008 LASIK 1990 radial keratomy SHOULDER SURGERY 04/10/2021 - 05/10/2021 Right BREAST CYST ASPIRATION 12/12/2019 Right Medical History Medical History Date Comments Hx Other Medical 1994 ; Outc ome: 40 week 6 lb(s) 15 oz Female PONV (postoperative nausea and vomiting) Delayed emergence from general anesthesia GERD (gastroesophageal reflux disease) SOB (shortness of breath) Heart palpitations Anxiety age 20 Arthritis Age 42 Cataract 2018 Depression Age 20 Sleep apnea Family History Medical History Relation Name Comments Alzheimer's disease Father aime Alzheime r's Disease; Hearing loss Father aime Heart attack Father aime Hypertension Father aime Hypertension; Memory loss Father aime Arthritis Mother Renae Bone cancer Mother Renae Bone cancer; Ca use of : Bone cancer Breast cancer Mother Renae Cancer, breast ; Cancer Mother Renae Clotting disorder Mother Renae Depression Mother Renae Hearing loss Mother Renae Mental illness Mother Renae Ovarian cancer Neg Hx Thyroid cancer Neg Hx Relation Name Status Comments Father aime Mother Renae Social History Tobacco Use Types Packs/Day Years Used Date Smoking Tobacco: Never Passive Smoke Exposure: Never Smokeless Tobacco: Never Tobacco Cessation:Counseling Given: Not Answered Alcohol Use Standard Drinks/Week Comments Yes 0 (1 standard drink = 0.6 oz pur e alcohol) Social Humiliation, Afraid, Rape, and Kick questionnair e Answer Date Recorded Within the last year, have y ou been afraid of your partner or ex-partner? No 01/05/2024 Within the last year, have y ou been humiliated or emotionally abused in other ways by your partner or ex-partner? No Within the last year, have y ou been kicked, hit, slapped, or otherwise physically hurt by your partner or ex-partner? No 01/05/2024 Within the last year, have y ou been raped or forced to have any kind of sexual activity by your partner or ex-partner? No 01/05/2024 AUDIT-C Answer Date Recorded Q1: How often do you have a drink containing alc ohol? Never 07/15/2023 Average Number of Drinks Not on file 024 Frequency of Binge Drinking Not on file 05/2023 PHQ-2 Answer Date Recorded PHQ-2 Total Score (If total score is 3 or more points, staff should administer the PHQ-9) 0 05/18/2024 Comments No Sex and Gender Information Value Date Recorded Sex Assigned at Not on file Legal Sex Female 10:10 AM CHIEF CLIENT OFFICER Gender Identity Female 03/29/2020 10:19 PM CHIEF CLIENT OFFICER Sexual Orientation Straight 10/14/2019 6: 14 PM CDT Obstetrics History Para Term AB IAB SAB Ectopic Multiple Livin g Live Births 4 1 1 3 3 1 1 Date Outcome GA Total Labor Labor/2nd/3rd Weight Sex Type Anes PTL Selam A1 A5 Name Clin Term Living IAB IAB IAB Last Filed Vital Signs Vital Sign Reading Time Taken Comments Blood Pressure 99/65 09/07/2024 11:16 AM CDT Pulse 73 09/07/2024 11:16 AM CDT Temperature 36.8 C (98.3 F) 05/18/2024 7:56 AM CDT Respiratory Rate 12 09/07/2024 11:16 AM CDT Oxygen Saturation 97% 08/31/2024 7:54 AM CDT Inhaled Oxygen Concentration - - Weight 69.2 kg (152 lb 8 oz) 09/07/2024 11:16 AM CDT Height 157.5 cm (5' 2) 09/07/2024 11:16 AM CDT Body Mass Index 27.89 09/07/2024 11:16 AM CDT Plan of Treatment Health Maintenance Due Date Last Done Comments Covid-19 Vaccine ( season) 2024 11/20/2020, 02/29/2020, 02/29/2020, Additional history exists Influenza Vaccine (#1) 2024 , 10/25/2022, 12/06/2021, Additional history exists Breast Cancer Screening-Mammogram 02/15/2025 02/16/2024, 02/06/2023, 02/06/2023, Additional history exists Depression Screening 05/18/2025 05/18/2024, 01/05/2024, 11/07/2023, Additional history exists Regular Well Visit/Exam 18-64 05/18/2025 05/18/2024, 01/05/2024, 04/14/2023, Additional history exists Zoster Vaccine (1 of 2) 05/18/2025 Post poned from 2014 (Patient declined, but will receive in the future) Cervical Cancer Screening 01/04/20292023, 12/31/2022, 12/05/2021, Additional history exists Colon Cancer Screening-Colonoscopy 11/08/2029 11/09/2019, 11/09/2019 DTaP/Tdap/Td Vaccine (3 - Td or Tdap) 08/02/2031 08/01/2021, 07/07/2013 Colon Cancer Screening-CT Colonography Discontinued 11/09/2019, 11/09/2019 Colon Cancer Screening-DNA Stool Discontinued 11/09/2019, 11/09/2019 Colon Cancer Screening-FIT Discontinued 11/09/2019, Colon Cancer Screening-Sigmoidoscopy Discontinued 11/09/2019, 11/09/2019 Hepatitis C Screening Completed 04/03/2020 Hepatitis B Screening Completed 05/17/2024 Pneumococcal vaccine <65 Aged Out No longer eligible based on patient's age to complete this topic Procedures Procedure Name Priority Date/Time Associated Diagnosis Comments SCAN - RADIOLOGY/IMAGING 11/01/2024 MRI CERVICAL SPINE WO CONTRAST Schedule Routine, Read Routine (OP Routine) 10/13/2024 5:42 PM CDT Cervical radicular pain ECG 12-LEAD Routine 10/13/2024 8:51 AM CDT Unilateral primary osteoarthritis, left knee Tachycardia, unspecified EGFR Routine 10/13/2024 8:22 AM CDT NICOTINE METABOLITE SCREEN, URINE Routine 10/13/2024 8:22 AM CDT ALBUMIN Routine 10/13/2024 8:22 AM CDT CREATININE Routine 10/13/2024 8:22 AM CDT HEMOGLOBIN Routine 10/13/2024 8:22 AM CDT HEMOGLOBIN A1C Routine 10/13/2024 8:22 AM CDT GLUCOSE, RANDOM Routine 10/13/2024 8:22 AM CDT XR SPINE CERVICAL 2 OR 3 VIEWS Schedule Routine, Read Routine (OP Routine) 10/02/2024 12:00 PM CDT Cervical radicular pain SCREENING MAMMOGRAM BILATERAL W SEAN Schedule Routine, Read Routine (OP Routine) 02/16/2024 1:34 PM CHIEF CLIENT OFFICER Encounter for screening mammogram for malignant neoplasm of breast PAP WITH REFLEX TO HIGH RISK HPV Routine 01/05/2024 11:03 AM CHIEF CLIENT OFFICER Well woman exam HEPATITIS C ANTIBODY Routine 04/03/2020 10:50 AM CHIEF CLIENT OFFICER COLONOSCOPY 11/09/2019 2:57 PM CDT from Last 3 Months or Most Recently Relevant to Health Maintenance Results * SCAN - RADIOLOGY/IMAGING (11/01/2024) Anatomical Region Laterality Modality Other us Provider Scanning Final Result * MRI Cervical Spine WO Contrast (10/13/2024 5:42 PM CDT) Anatomical Region Laterality Modality Spine N/A Magnetic Resonan ce 10/14/2024 8:06 AM CDT Narrative 10/14/2024 9:10 AM CDT EXAM DESCRIPTION: MRI CERVICAL SPINE WO CONTRAST REASON FOR STUDY: CERVICAL RADICULAR PAIN Neck pain, chronic, eval for stenosis, recent diagnosis of lumbar stenosis TECHNIQUE: Sagittal and Axial imaging includes T1, T2, STIR and gradient echo sequences. COMPARISON: Cervical spine MRI from an outside institution dated 03/04/2022. Cervical spine radiographs dated 10/02/2024. FINDINGS: ALIGNMENT: Reversal of the normal cervical lordosis. There is mild anterolisthesis of C3 on C4 through C5 on C6 and C7 on T1 through T3 on T4. VERTEBRAE: No gross acute compression fracture in the cervical spine. If trauma is suspected then a CT has higher sensitivity spinal fractures and can be obtained as clinically indicated. The right C4-C5, C6-C7, C7-T1 and left T2-T3 facet joint STIR hyperintense signal can be seen with synovitis in the proper clinical scenario. DISCS: Multilevel disc desiccation and height loss. HARDWARE: None in the spine. CORD: No definite T2 hyperintense cord signal alteration is reproduced on 2 separate sequences. INDIVIDUAL LEVELS: C2-C3: Posterior disc osteophyte complex and thickened ligamentum flavum. No significant spinal canal stenosis. Uncovertebral spurring and kxcsu-kiacjuj-uldx-left facet arthropathy with mild right and no significant left neural foraminal narrowing. C3-C4: Posterior disc osteophyte complex flattens the ventral thecal sac. Dorsal CSF cleft is maintained. Uncovertebral spurring and facet arthropathy with zuzb-fp-djkqaqzy neural foraminal narrowing. C4-C5: Anterolisthesis of C4 on C5 with unroofing of the disc. Superimposed tiny central disc protrusion. No significant spinal canal stenosis. Uncovertebral spurring and facet arthropathy without significant neural foraminal narrowing. C5-C6: Anterolisthesis of C5 on C6 with unroofing of the disc. No significant spinal canal stenosis. Uncovertebral spurring and facet arthropathy without significant neural foraminal narrowing. C6-C7: Posterior disc osteophyte complex without significant spinal canal stenosis. Uncovertebral spurring and facet arthropathy with pask-li-qwiiioll left and mild right neural foraminal narrowing. C7-T1: Anterolisthesis of C7 on T1 with unroofing of the disc. No significant spinal canal stenosis. Thickened ligamentum flavum with uncovertebral spurring and facet arthropathy. Mild bilateral neural foraminal narrowing. UPPER THORACIC: Incompletely imaged. Degenerative changes without high-grade spinal canal stenosis. The T2 and partially imaged T4 vertebral body rounded T1 and T2 hyperintense signal in keeping with intraosseous hemangioma. IMPRESSION: 1. Cervical disc degeneration ranging up to moderate with thickened ligamentum flavum, uncovertebral spurring and more advanced facet arthropathy as seen on the cervical spine MRI dated 03/04/2022. No high-grade spinal canal stenosis. 2. Varying degrees of bilateral neural foraminal stenosis and other findings as described. THIS IS AN ELECTRONICALLY VERIFIED FINAL REPORT 10/14/2024 9:10 AM - Electronically signed by Conor Kirkland D.O. AP: AP Report ID: [id number] Reading Location: [id number] Procedure Note Conor Kirkland, DO - 10/14/2024 EXAM DESCRIPTION: MRI CERVICAL SPINE WO CONTRAST REASON FOR STUDY: CERVICAL RADICULAR PAIN Neck pain, chronic, eval for stenosis, recent diagnosis of lumbar stenosis TECHNIQUE: Sagittal and Axial imaging includes T1, T2, STIR and gradientecho sequences. COMPARISON: Cervical spine MRI from an outside institution dated03/04/2022. Cervical spine radiographs dated 10/02/2024. FINDINGS: ALIGNMENT: Reversal of the normal cervical lordosis. There is mild anterolisthesis of C3 on C4 through C5 on C6 and C7 on T1 through T3 onT4. VERTEBRAE: No gross acute compression fracture in the cervical spine.If trauma is suspected then a CT has higher sensitivity spinal fractures andcan be obtained as clinically indicated. The right C4-C5, C6-C7, C7-T1 andleft T2-T3 facet joint STIR hyperintense signal can be seen with synovitis inthe proper clinical scenario. DISCS: Multilevel disc desiccation and height loss. HARDWARE: None in the spine. CORD: No definite T2 hyperintense cord signal alteration is reproducedon 2 separate sequences. INDIVIDUAL LEVELS: C2-C3: Posterior disc osteophyte complex and thickened ligamentum flavum.No significant spinal canal stenosis. Uncovertebral spurring and dclmb-fqvchwi-buge-left facet arthropathy with mild right and nosignificant left neural foraminal narrowing. C3-C4: Posterior disc osteophyte complex flattens the ventral thecal sac. Dorsal CSF cleft is maintained. Uncovertebral spurring and facetarthropathy with uqcz-be-vfzdmlkh neural foraminal narrowing. C4-C5: Anterolisthesis of C4 on C5 with unroofing of the disc.Superimposed tiny central disc protrusion. No significant spinal canal stenosis. Uncovertebral spurring and facet arthropathy without significant neural foraminal narrowing. C5-C6: Anterolisthesis of C5 on C6 with unroofing of the disc. Nosignificant spinal canal stenosis.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
--- OUTSIDE RECORDS SUMMARY | 2024-12-22 13:14 | XMS_ITS | Encounter Summary ---
Author Organization [facility] Address [address] [place] [address] Phone Care Team Providers Care Silver Recovery Operator Name Role Phone Unavailable Primary Care Provider Unavailabl e Reason for Visit * Reason Comments Medication Refill Encounter Details Date Type Department Care Team (Late st Contact Info) Description 06/17/2023 Refill [facility] - Family Medicine [facility] [address] [place] [address] Jose David Manjarrez MD [address] [address] Medication Refill Social History Tobacco Use Types Packs/Day Years [...] on file documented as of this encounter Visit Diagnoses Not on filedocumented in this encounter Additional Health Concerns Assessment Noted Time PHQ-9 Depression Total Score: 0 09/01/19 19 8:00 AM CDT documented as of this encounter
--- OUTSIDE RECORDS SUMMARY | 2024-12-22 13:14 | XMS_ITS | Clinical Summary ---
Author Organization [facility] Address [address] [place] [address] Care Team Providers Care Pewter Finisher Name Role Phone Hester Tana Harjinder DO Primary Care Provider [phone] Allergies No known active allergies Medications esomeprazole (NexIUM) 20 mg Capsule, Delayed Release(E.C.) Take one capsule by mouth once daily as needed 90 Capsule 1 04/17/2018 7:10 AM STUDENT SERVICES VICE PRESIDENT 9 Active halobetasol propionate (ULTRAVATE) 0.05 % Cream Apply twice daily to eczema. DO NOT USE ON FACE OR GENITALS. 60 Gram 1 04/22/2018 7:03 AM CDT 9 Active clotrimazole-be tamethasone (LOTRISONE) 1-0.05 % Cream Apply topically to affected area on feet 2 times a day. 45 Gram 6 06/10/2019 5:34 PM CDT 0 Active ketoconazole (NIZORAL) 2 % Cream Apply to affected area on feet 2 times daily. 60 Gram 2 07/12/2019 7:01 AM CDT 0 Active linaCLOtide (Linzess) 145 mcg capsule Take 1 Capsule (145 mcg) by mouth daily. 90 Capsule 1 1 Active fluconazole (DIFLUCAN) 150 mg tablet Take 1 Tablet (150 mg) by mouth daily for 4 days. 4 Tablet 02/20/2021 7:01 AM STUDENT SERVICES VICE PRESIDENT 1 Active valACYclovir (VALTREX) 1 gram tablet Take 1 Tablet (1,000 mg) by mouth daily. 30 Tablet 2 01/31/2022 5:43 PM STUDENT SERVICES VICE PRESIDENT 2 Active doxepin (SILENOR) 3 mg Tablet Take 1 Tablet (3 mg) by mouth nightly as needed for sleep. 30 Tablet 4 03/14/2022 5:55 PM STUDENT SERVICES VICE PRESIDENT 2 Active doxepin (SINEquan) 10 mg capsule Take 1 Capsule (10 mg) by mouth daily at bedtime. 30 Capsule 5 11/25/2021 5:34 PM CDT 2 Active meloxicam (MOBIC) 15 mg tablet Take 1 Tablet (15 mg) by mouth daily. 30 Tablet 11 03/05/2023 7:01 AM STUDENT SERVICES VICE PRESIDENT 3 Active modafiniL (PROVIGIL) 200 mg Tablet Take One-Half to One Tablet (100-200 mg) by mouth daily in the morning as needed to help with mental alertness. 90 Tablet 1 05/10/2022 5:59 PM CDT 3 Active cyclobenzaprine (FLEXERIL) 10 mg tablet Take 1 Tablet (10 mg) by mouth daily as needed for muscle spasms. 30 Tablet 08/07/2022 6:51 PM CDT 3 Active traMADoL (ULTRAM) 50 mg tablet Take 1 Tablet (50 mg) by mouth 2 times daily as needed for pain 60 Tablet 5 08/07/2022 6:51 PM CDT 3 Active cycloSPORINE (Restasis) 0.05 % emulsion Administer 1 Drop in both eyes 2 times daily. 180 Each 4 06/19/2023 7:08 AM CDT 3 Active lubiprostone (AMITIZA) 8 mcg Capsule Take 1 Capsule (8 mcg) by mouth 2 times daily with meals. 60 Capsule 3 01/31/2023 7:04 AM STUDENT SERVICES VICE PRESIDENT 3 Active cyclobenzaprine (FLEXERIL) 10 mg tablet Take 1 Tablet (10 mg) by mouth 2 times daily as needed for muscle spasm. 30 Tablet 10/25/2022 7:26 AM CDT 3 Active traZODone (DESYREL) 50 mg tablet Take One-Half to 1 Tablet (25-50 mg) by mouth nightly as needed for sleep 90 Tablet 1 01/31/2023 7:04 AM STUDENT SERVICES VICE PRESIDENT 3 Active metoclopramide HCl (REGLAN) 10 mg tablet Take 1 Tablet (10 mg) by mouth 2 times daily as needed for more severe constipation and abdominal fullness. 60 Tablet 2 07/10/2023 7:10 AM CDT 3 Active atenoloL (TENORMIN) 25 mg tablet Take 1 Tablet (25 mg) by mouth daily. 90 Tablet 3 07/16/2023 6:31 PM CDT 3 Active DULoxetine (CYMBALTA) 30 mg Capsule, Delayed Release(E.C.) Take 1 Capsule (30 mg) by mouth daily in the morning. (Take with 60mg capsule for total daily dose of 90mg daily) 90 Capsule 2 06/19/2023 7:08 AM CDT 4 Active DULoxetine (CYMBALTA) 60 mg Capsule, Delayed Release(E.C.) Take 1 Capsule (60 mg) by mouth daily in the morning. (Take with 30mg capsule for total daily dose of 90mg daily) 90 Capsule 1 07/10/2023 7:06 AM CDT 4 Active vilazodone (VIIBRYD) 40 mg Tablet Take 1 Tablet (40 mg) by mouth daily with breakfast. 90 Tablet 3 07/10/2023 7:06 AM CDT 4 Active valACYclovir (VALTREX) 1 gram tablet Take 1 Tablet by mouth daily. 30 Tablet 2 06/19/2023 7:08 AM CDT 4 Active traZODone (DESYREL) 50 mg tablet Take One-Half to One Tablet (25-50 mg) by mouth at bedtime as needed for sleep. 90 Tablet 1 07/18/2023 7:07 AM CDT 4 Active dicyclomine (BENTYL) 20 mg tablet Take 1 Tablet (20 mg) by mouth daily as directed 30 Tablet 3 07/18/2023 7:07 AM CDT 4 Active Immunizations Immunization Administration Dates Next Due (kWhOURS)(12 YR UP) COVID-19 VACCINE - EMERGENCY USE AUTHORIZATION, MRNA, [id number](PF) 30 MCG/0.3 ML IM SUSP 02/29/2020,02/07/2020 Influenza Seasonal Unspecifi ed Formulation IM 10/25/2022,11/08/2021,11/10/2020,2019,10/26/2018,11/12/2017 Family History Medical History Relation Name Comments Breast Cancer Mother Relation Name Status Comments Mother Social History Tobacco Use Types Packs/Day Years Used Date Smoking Tobacco: Never Assessed Comments Unknown Sex and Gender Information Value Date Recorded Sex Assigned at Not on file Legal Sex Female 11:29 PM CDT Gender Identity Not on file Sexual Orientation Not on file Plan of Treatment Health Maintenance Due Date Last Done Comments HPV/Cotest (21-29) 1985 HPV/Cotest (30-) 1994 FIT-DNA Q 3 years 2009 FIT/FOBT Q 1 year 2009 Flex Sig/CT Colonography Q 5 years 2009 ZOSTER VACCINE (1 of 2) 2014 CERVICAL CANCER SCREENING 10/09/2021 PAP SMEAR 10/09/2021 10/09/2018 BREAST CANCER SCREENING 02/07/2024 02/07/20 23, 02/06/2023, 02/01/2022, Additional history exists INFLUENZA VACCINE (#1) 2024 3, 11/08/2021, 11/10/2020, Additional history exists COVID-19 Vaccine (3 - 2024- season) 2024 02/29/2020, 02/07/2020 COLORECTAL SCREENING 11/08/2029 11/09/2019, 11/09/2019, 11/09/2019, Additional history exists Colorectal Cancer Screening 11/08/2029 DTAP/TDAP/TD VACCINES (3 - Td or Tdap) 08/02/2031 08/01/2021, 07/07/2013 RSV VACCINE (60+ or ) (1 - 1-dose 75+ series) 05/02/2039 HEPATITIS B VACCINES Aged Out No long er eligible based on patient's age to complete this topic Procedures Procedure Name Priority Date/Time Associated Diagnosis Comments MAMMO 3D LAURA SCREEN BILAT W OR WO CAD Routine 02/06/2023 8:13 AM STUDENT SERVICES VICE PRESIDENT Breast cancer screening by mammogram from Last 3 Months or Most Recently Relevant to Health Maintenance Results * MAMMO 3D LAURA SCREEN BILAT W OR WO CAD (02/06/2023 8:13 AM STUDENT SERVICES VICE PRESIDENT) Anatomical Region Laterality Modality Breast Bilateral Mammography 02/06/2023 8:13 AM STUDENT SERVICES VICE PRESIDENT Impressions 02/06/2023 12:23 PM STUDENT SERVICES VICE PRESIDENT IMPRESSION: No mammographic evidence of malignancy. OVERALL FINAL ASSESSMENT: BI-RADS CATEGORY 1: Negative RECOMMENDATIONS: Annual screening. The above findings should be correlated with physical examination. A relatively nonspecific study should not preclude additional evaluation if suspicious findings are present clinically. An [employer] certified facility. DICTATION LOCATION: [facility] Narrative 02/06/2023 12:23 PM STUDENT SERVICES VICE PRESIDENT MAMMOGRAMS SCREENING DIGITAL BILATERAL WITH CAD AND 3D TOMOSYNTHESIS DATE: 02/06/2023 8:13 AM PRIOR: February 01, 2022. HISTORY: Screening. TECHNIQUE: Bilateral digital craniocaudad (CC) and mediolateral oblique (MLO) views. 3D Tomosynthesis. CAD. DENSITY: There are scattered areas of fibroglandular density. FINDINGS: No suspicious finding of either breast. Procedure Note Rob Veliz MD - 02/06/2023 MAMMOGRAMS SCREENING DIGITAL BILATERAL WITH CAD AND 3D TOMOSYNTHESIS DATE: 02/06/2023 8:13 AM PRIOR: February 01, 2022. HISTORY: Screening. TECHNIQUE: Bilateral digital craniocaudad (CC) and mediolateral oblique (MLO) views. 3D Tomosynthesis. CAD. DENSITY: There are scattered areas of fibroglandular density. FINDINGS: No suspicious finding of either breast. IMPRESSION: No mammographic evidence of malignancy. OVERALL FINAL ASSESSMENT: BI-RADS CATEGORY 1: Negative RECOMMENDATIONS: Annual screening. The above findings should be correlated with physical examination. A relatively nonspecific study should not preclude additional evaluation if suspicious findings are present clinically. An [employer] certified facility. DICTATION LOCATION: [facility] Malena Pina NP MAMMO ORDERABLES Final Resul t from Last 3 Months or Most Recently Relevant to Health Maintenance Insurance RX [employer] Commercial RX [employer] (INTERNAL) [facility] [employer] RX [employer] Commercial RX [facility] [employer] Care Teams Pewter Finisher Relationship Specialty Start Date End Date Tana Hester DO PCP - General Family Practice 10/19/19
[2024-12-22 13:19] LABS: Hematocrit 41.3 % (37.0-47.0); Hemoglobin 13.5 g/dL (12.0-15.0); Immature Granulocyte Percent A 0.2 % (0-0.5); Lymphocytes Absolute Auto 3.15 K/mm3 (0.9-3.2); Mean Corpuscular HGB Conc 32.7 g/dl (32-36); Mean Corpuscular Hemoglobin 29.2 pg (26-34); Mean Corpuscular Volume 89.2 fl (80-100); Nucleated Red Blood Cells Absolute Auto 0.000 K/mm3 (0.0-0.012); Nucleated Red Blood Cells Perc 0.0 % (0.0-0.2); Platelet Count Result 248 k/mm3 (150-375); Red Blood Count 4.63 M/mm3 (4.2-5.4); White Blood Count 8.6 K/mm3 (4.5-10.0)
[2024-12-22 13:37] LABS: Albumin Level 4.1 g/dL (3.5-5.1); Estimated Glomerular Filt Rate > 60; Glucose 90 mg/dL (65-110)
[2024-12-22 14:12] LABS: Hemoglobin A1C 4.8 % (<5.7)
[2024-12-22 14:34] LABS: MRSA (PCR) NOT DETECTED (NOT DETECTE)
== END 2024-12-22 11:41 | disposition home or self-care (01) ==
PROVIDERS: PCP Family Medicine; Visit Provider Orthopaedic Surgery
DX: Z01.818 Encounter for other preprocedural examination (principal); M17.12 Unilateral primary osteoarthritis, left knee
CPT/HCPCS: 80307; 82040; 82565; 82947; 83036; 85025; 87641

== ENCOUNTER 2025-01-13 01:45 | Day surgery (SDC) | payer OTHER, SELFPAY ==
--- NOTE | 2024-12-22 11:54 | PC.NURSE ---
[facility] has started construction of its new state of the art ER which will open Spring 2026. With this, we anticipate parking may be a challenge for some our surgical patients and families. Parking spaces are limited but are available for all Surgical, obstetrics, and ER patients sharing this lot. If you arrive and find you are having a hard time finding a parking space, please note that we understand the challenges, please drive around the hospital and park near Hospital Entrance 1. When you enter this entrance, you can ask a volunteer to direct or take you back to the surgical waiting area to check in. We appreciate everyone?s understanding of these expected challenges while we build for your future. Report to the Outpatient Waiting Room, entrance under the green pavilion located off [address], at time _6 AM on date __01/13/25 . Planned Procedure Time: ___7:30 AM .? Time changes happen often and if your time is changed the preop area will call you the afternoon before. - You and your visitor will be asked to self-screen and do not enter if you have any COVID symptoms. Please call surgeon if you need to reschedule. - A mask is optional within the hospital at this time. Patients may have clear liquids (water, carbonated beverages, clear teas, apple juice) until 3 hours prior to surgery( 4:30 AM) with a maximum of 20 ounces. - No food from midnight until time of surgery and no smoking, or chewing tobacco (or any form of nicotine). No chewing gum, candy or mints. - Take only the following medications with a SIP of water on the morning of surgery: _ATENOLOL,EYE DROPS,DULOXETINE,VILAZODONE DO NOT STOP ANY OF YOUR OTHER PRESCRIPTION MEDICATIONS PRIOR TO SURGERY EXCEPT THE FOLLOWING Hold all vitamins and supplements for 3 days per anesthesiologist.LAST DOSE 01/09/25 Medications to discontinue per physician ___JOHNNY HOLD 10 DAYS PRE OP PER ANESTHESIA __LAST DOSE_01/02/25 ALEVE__AND ASPIRIN LAST DOSE 01/05/25 MAY TAKE TYLENOL IF NEEDED FOR PAIN Date to take last dose Please no make-up, nail slovenian, hairspray, perfume, deodorant, or body powder the day of surgery.? No jewelry (including any body piercings) or valuables the day of surgery, leave them at home.? Please take a shower or bath the night before, or the morning of, surgery with an antibacterial soap.? Wear comfortable, loose fitting clothing.? Children are encouraged to wear pajamas. - Jewelry must be removed prior to entering the operating room.? Rings and piercings that are not removed may be cut off. - The hospital will not accept responsibility for valuables.? - Please leave all valuables, including medications, at home the day of surgery. If you are going home after surgery, a licensed transit driver must drive you home.? - NO public transportation without another adult if you receive anesthesia. - We recommend that an adult stay with you for 24 hours following discharge. - We also recommend that you do not drive, make important decision, drink alcoholic beverages, or take any drugs that were not prescribed by your health care provider for at least 24 hours after your discharge time. For Pediatric surgeries, we recommend two adults accompany the child home. Follow any additional instructions given to you from your surgeon. VERBAL AND WRITTEN instructions given to PATIENT and asked if any additional questions and then verbalized understanding. Patient advised to call surgeon office or pre surgery nurse liaison [phone] if any additional questions.
[2024-12-22 12:48] VITALS: BP 107/68; PULSE 64; RESP 18; TEMP 36.8; O2SAT 97; BMI 27.4
[2025-01-13] VITALS (14 sets, daily range): BP systolic 95–111; BP diastolic 47–69; PULSE 56–90; RESP 12–20; TEMP 35.6–36.7; O2SAT 92–100; BMI 26.5
--- NOTE | ~2025-01-13 | XR_ITS ---
EXAMINATION: [id number], 01/13/2025 10:05 FORGING MACHINE OPERATOR HISTORY: POST OP LEFT CUSTOM TKA COMPARISON: No comparisons available. Findings: No acute fracture or malalignment. Arthroplasty intact Soft tissues unremarkable. Impression: No acute fracture or malalignment. Reviewed, dictated and finalized at location P. ING MACHINE OPERATOR Impression: No acute fracture or malalignment.
--- OUTSIDE RECORDS SUMMARY | 2025-01-13 01:49 | XMS_ITS | Clinical Summary ---
Author Organization [facility] Address [address] [place] [address] Care Team Providers Care Bin Packer Name Role Phone Anca Watkins MD Unavailable Avery Moreno MD Unavailable [phone] Rob Vaughn MD Unavailable [phone] Liliane Mccabe MD Primary Care Provide r Allergies Active Allergy Reactions Criticality Noted Date Comments Latex Hives,Rash Reaction: Hives, Skin Rash, Medications DULoxetine DR (CYMBALTA) 60 mg capsule Take [...] mg total) by mouth daily 024 Active glucosamine HCl 1,500 mg tablet Take by mouth nightly 2024 Disconti nued(Pat ient Reported ) Active Problems Problem Noted Date Diagnosed Date Valvular heart disease 09/03/2024 Overview (09/07/2024): Mild prolapse of the posterior mitral valve leaflet with jcfq-xd-bnyebqle MR, mild TR on echo 24 Jun 2024. LVEF of 60-65%. Patient told me she had mild mitral valve prolapse also on an echo over 20 years ago. On atenolol 25 mg daily. Assessment & Plan (09/07/2024 11:50 AM CDT): I showed patient the latest echo pictures. 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 We discussed [...] pushing the ultrasound machine for Radiology at [facility]. BMI 29.0-29.9,adult 05/18/2024 Encounter for [...] beta-vesta. We discussed that her symptoms on alarm security or surveillance monitor in June 2024 were not associated with anything significant. No change in medical regimen here. Patient denies excessive caffeine use or high energy drinks. No significant PAC or PVC count anyway on the latest monitor. Assessment & Plan (05/18/2024 8:28 AM CDT): Chronic Worsening over the past 6 months Recent labs were wnl 14 day alarm security or surveillance monitor and TTE Continue atenolol as is Referral [...] 12/27/2019 Assessment & Plan (12/30/2019 9:51 AM INSPECTOR PENETRANT): Symptoms worsening slightly. Patient to use vgkv-lqe-xlqvgml medications to treat symptoms. If symptoms continue to worsen or she develops any worrisome signs or symptoms please go to nearest emergency room. FMLA paperwork will be completed. Myalgia 11/30/2019 Arthralgia 10/28/2019 Assessment & Plan (04/10/2022 9:41 AM INSPECTOR PENETRANT): Pain worsening, would like to consult with [...] months Assessment & Plan (04/14/2023 8:14 AM INSPECTOR PENETRANT): LDL near goal of < 100, continue dietary modifications and daily exercise. Assessment & Plan (04/10/2022 9:42 AM INSPECTOR PENETRANT): LDL near goal of < 100, low chol diet recommended. Assessment & Plan (06/13/2021 1:39 PM CDT): LDL near goal of < 100. Low chol diet recommended. Patient declines a statin at this time. Assessment & Plan (04/09/2021 11:58 AM INSPECTOR PENETRANT): Aspirin for prevention. Assessment & Plan (04/03/2020 9:56 AM INSPECTOR PENETRANT): Low-cholesterol diet recommended. Continue ehcq-enz-cbnoovj omega-3 fatty acids as directed. Assessment & Plan (03/10/2019 11:09 AM INSPECTOR PENETRANT): Low chol diet recommended. Seasonal allergies 05/15/2015 Assessment & Plan (03/10/2019 11:09 AM INSPECTOR PENETRANT): Stable. Cont. Current meds. Major depressive disorder, recurrent episode, mo derate 03/08/2015 Overview (03/10/2019): Managed by psychiatry-Dr. Watkins Assessment & Plan (05/17/2024 12:09 PM CDT): Managed by psychiatry. Assessment & Plan (11/05/2023 12:55 PM CDT): Managed by psychiatry. Assessment & Plan (03/10/2019 11:09 AM INSPECTOR PENETRANT): Managed by psychiatry. Mitral valve prolapse 06/26/2013 [...] psychiatry. Assessment & Plan (03/10/2019 11:09 AM INSPECTOR PENETRANT): Managed by psychiatry. Resolved Problems Problem Noted Date Diagnosed Date Resolved Date Encounter to establish care 11/05/2023 05/18/2024 Assessment & Plan (11/05/2023 12:56 PM CDT): Medical history reviewed and discussed F/u in 6 months for annual with labs Gallstones 05/31/2020 06/21/2020 Gallstones 04/03/2020 07/26/2020 Assessment & Plan (04/03/2020 9:57 AM INSPECTOR PENETRANT): No acute abdominal pain today. Patient requests referral to web press jogger. Referral given. Class 1 obesity due to exces s calories with serious comorbidity and body mass index (BMI) of 30.0 to 30.9 in adult 11/30/2019 01/23/2024 Assessment & Plan (11/07/2023 9:23 AM CDT): Weight reduction, daily exercise and dietary modifications recommended., as obesity can complicate their hypercholesterolemia Assessment & Plan (04/14/2023 8:14 AM INSPECTOR PENETRANT): Weight reduction, daily exercise and dietary modifications recommended., as obesity can complicate their hypercholesterolemia Assessment & Plan (06/13/2021 1:38 PM CDT): Weight reduction, daily exercise and dietary modifications recommended. Assessment & Plan (04/09/2021 11:59 AM INSPECTOR PENETRANT): Weight reduction, daily exercise and dietary modifications recommended. Assessment & Plan (12/05/2019 1:29 PM CDT): Weight reduction, daily exercise and dietary modifications recommended. Blood in stool 10/26/2019 11/30/2019 Overview (10/26/2019): Added automatically from request for surgery [id number] Gastroesophageal reflux disease 11/14/2015 03/10/2019 Tachycardia 06/26/2013 03/10/2019 Overview (05/17/2016): Tachycardia Encounters Date Type Department Care Team Description 01/10/2025 8:00 AM INSPECTOR PENETRANT Office Visit [address] [address] Malena Pina NP Well woman exam (Primary Dx); Screening mammogram for breast cancer 11/01/2024 Orders Only [facility] Health Information Management [address] [place] [address] Scanning, Provider from Last 3 Months Immunizations Immunization Administration [...] and 33 CHOLECYSTECTOMY JOINT REPLACEMENT rt tkr 2009 LASIK 1990 radial keratomy SHOULDER SURGERY 04/10/2021 - 05/10/2021 Right BREAST CYST ASPIRATION 12/12/2019 Right Medical History Medical History Date Comments Hx Other Medical 1995 ; Outc ome: 40 week 6 lb(s) [...] of : Bone cancer Breast cancer Mother Renea Cancer, breast ; Cancer Mother Renae Clotting [...] points, staff should administer the PHQ-9) 0 01/10/2025 PHQ-9 Answer Date Recorded PHQ-9 Total Score 0 01/10/2025 Comments No Sex and Gender Information Value Date Recorded Sex Assigned at Not on file Legal Sex Female 10:10 AM INSPECTOR PENETRANT Gender Identity Female 03/29/2020 10:19 PM INSPECTOR PENETRANT Sexual Orientation Straight 10/14/2019 6: 14 PM CDT Obstetrics History Para Term AB IAB SAB Ectopic Multiple Livin g Live Births 4 1 1 3 3 1 1 Date Outcome GA Total Labor Labor//3rd Weight Sex Type Anes PTL Selam A1 A5 Name Clin Term Living IAB IAB IAB Last Filed Vital Signs Vital Sign Reading Time Taken Comments Blood Pressure 116/74 01/10/2025 8:13 AM INSPECTOR PENETRANT Pulse 82 01/10/2025 8:13 AM INSPECTOR PENETRANT Temperature 36.8 C (98.3 F) 05/18/2024 7:56 AM CDT Respiratory Rate 12 09/07/2024 11:16 AM CDT Oxygen Saturation 98% 01/10/2025 8:13 AM INSPECTOR PENETRANT Inhaled Oxygen Concentration - - Weight 66.7 kg (147 lb) 01/10/2025 8:13 AM INSPECTOR PENETRANT Height 160 cm (5' 3) 01/10/2025 8:13 AM INSPECTOR PENETRANT Body Mass Index 26.04 01/10/2025 8:13 AM INSPECTOR PENETRANT Plan of Treatment Health Maintenance Due Date Last Done Comments Covid-19 Vaccine ( season) 2024 11/20/2020, 02/29/2020, 02/29/2020, Additional history exists Influenza Vaccine (#1) 2024 , 10/25/2022, 12/06/2021, Additional history exists Breast Cancer Screening-Mammogram 02/15/2025 02/16/2024, 02/06/2023, 02/06/2023, Additional history exists Zoster Vaccine (1 of 2) 05/18/2025 Post poned from 2014 (Patient declined, but will receive in the future) Depression Screening 01/10/2026 01/10/2025, 01/10/2025, 05/18/2024, Additional history exists Regular Well Visit/Exam 18-64 01/10/2026 01/10/2025, 05/18/2024, 01/05/2024, Additional history exists Cervical Cancer Screening 01/04/20292024, 01/05/2024, 12/31/2022, Additional history exists Colon Cancer Screening-Colonoscopy 11/08/2029 [...] Procedure Name Priority Date/Time Associated Diagnosis Comments PAP, REFLEX HPV Routine 01/10/2025 8:55 AM INSPECTOR PENETRANT Well woman exam SCAN - RADIOLOGY/IMAGING 11/01/2024 SCREENING MAMMOGRAM BILATERAL W SEAN Schedule Routine, Read Routine (OP Routine) 02/16/2024 1:34 PM INSPECTOR PENETRANT Encounter for screening mammogram for malignant neoplasm of breast HEPATITIS C ANTIBODY Routine 04/03/2020 10:50 AM INSPECTOR PENETRANT COLONOSCOPY 11/09/2019 2:57 PM CDT from Last 3 Months or Most Recently Relevant to Health Maintenance Results * Pap, reflex HPV (01/10/2025 8:55 AM INSPECTOR PENETRANT) CLINICAL INFORMATION: Bela Faria Comment:WELL WOMAN EXAM LMP Bela Faria Comment:ABLATION Previous Pap Bela Faria Comment:NONE GIVEN Prev. Bx Bela Faria Comment:NONE GIVEN SOURCE: Bela Faria Comment:Cervix, Endocervix Pap, specimen adequacy Bela Faria Comment:SATISFACTORY FOR JARROD LUATION HPV interp Bela Faria Comment: Cytology Results: Negative for intraepithelial lesion or malignancy. Atrophic pattern; predominantly parabasal cells COMMENTS Bela Faria Comment: This Pap test has been evaluated with the ThinPrep(R) Imaging System. Scale Reclamation Tender [facility] Comment: TLS, CT(ASCP) CT Screening Location: [place] [address] [address] [place] [address] CLIA: [id number] Slide preparation performed at: [facility], [address] [place] [address], [address] CLIA: [id number] Comment Bela Faria Comment: EXPLANATORY NOTE: The Pap is a screening test for cervical cancer. It is not a diagnostic test and is subject to false negative and false positive results. It is most reliable when a satisfactory sample, regularly obtained, is submitted with relevant clinical findings and history, and when the Pap result is evaluated along with historic and current clinical information. Thin prep 01/10/2025 8:55 AM INSPECTOR PENETRANT 01/11/2025 7:22 PM INSPECTOR PENETRANT Malena Pina CONTINUOUS PROCESS [facility] LAB CYTOLOGY ORDERABLES Fin al Result [facility] [address] [place] [address] * SCAN - RADIOLOGY/IMAGING (11/01/2024) Anatomical Region Laterality Modality Other Provider Scanning Final Result * Screening Mammogram Bilateral W Sean (02/16/2024 1:34 PM INSPECTOR PENETRANT) Anatomical Region Laterality Modality Breast Bilateral Mammography 02/20/2024 9:48 AM INSPECTOR PENETRANT Impressions 02/20/2024 9:48 AM INSPECTOR PENETRANT No evidence of malignancy in either breast. FINAL ASSESSMENT: BI-RADS Category 2: Benign. RECOMMENDATION: Recommend return for annual screening mammogram in 12 months. Electronically signed by: Marty Grace M.D. Narrative 02/20/2024 9:48 AM INSPECTOR PENETRANT EXAMINATION: BILATERAL SCREENING MAMMOGRAM COMPARISON: Mammograms from [facility] dated 02/06/2023, 02/01/2022, and 12/04/2020 TECHNIQUE: Full-field 2D and digital breast tomosynthesis (DBT) images were obtained. CAD was utilized. BREAST PARENCHYMAL COMPOSITION: There are scattered areas of fibroglandular density. FINDINGS: Multiple small benign-appearing masses with circumscribed margins in both breasts have not suspiciously changed. There is no new suspicious finding in either breast on mammogram. us Malena Pina CONTINUOUS PROCESS T[facility]NER R[facility] DRUM IMG MAMMO PROCEDURES Final Result * Hepatitis C antibody (04/03/2020 10:50 AM INSPECTOR PENETRANT) Hep C Ab NON-REACTI VE NON-REACT LISA [facility] SIGNAL TO CUT-OFF 0.02 <1.00 [facility] Comment: HCV antibody was non-reactive. There is no laboratory evidence of HCV infection. In most cases, no further action is required. However, if recent HCV exposure is suspected, a test for HCV RNA (test code 76226) is suggested. For additional information please refer to http://education.Wireless Environment/faq/HTD27l9 (This link is being provided for informational/ educational purposes only.) 04/03/2020 10:5 0 AM INSPECTOR PENETRANT 04/03/2020 10:53 AM INSPECTOR PENETRANT Narrative [facility] - 04/04/2020 10:12 AM INSPECTOR PENETRANT FASTING:YES FASTING: YES us Tana Hester DO LAB MICROBIOLOGY - GENERAL ORDERABLES Final Result [facility] [address] [facility] [place] [id number] * COLONOSCOPY (11/09/2019 2:57 PM CDT) Anatomical Region Laterality Modality Other Narrative Procedure Note Gume Irvin MD - 11/09/2019 2:57 PM CDT [facility] Patient Name: Casie Barnes Procedure Date: 11/09/2019 2:57 PM Date of : 1965 Admit Type: Outpatient Age: 54 Gender: Female Attending MD: Gume Irvin M.D. Room: [facility] ENDOSCOPY ROOM 1 Note Status: Finalized Patient [...] passed under direct vision.The Pediatric Colonoscope [id number] was introduced through the anus and advanced [...] 2:57 PM Procedure Code(s): --- Professional --- 12339, Colonoscopy, flexible; diagnostic, including collection of specimen(s) by brushing or washing, when performed (separateprocedure) Diagnosis Code(s): --- Professional --- Z12.11, Encounter for screening for malignant neoplasm of colon K64.8, Other hemorrhoids CPT copyright 2017 [employer]. All rights reserved. The codes documented in this report are preliminary and upon educational speech language clinician reviewmay be revised to meet current compliance requirements. Recognized by the [employer] for promoting quality in endoscopy Gume Irvin MD ENDOSCOPY PROCEDURES Final Result from Last 3 Months or Most Recently Relevant to Health Maintenance Insurance COUNTS INCLUDE 234 BEDS AT THE [facility] [employer] Address: [facility] [address] [place] [address] COUNTS INCLUDE 234 BEDS AT THE [facility] [employer] Address: [facility] [address] [place] [address] Advance Directives For more information, please contact: [phone] * Full Code (Latest Code Status on File) Date Activated Date Inactivated Comments 11/09/2019 1:37 PM 11/09/2019 8:22 PM * Full Code Date Activated Date Inactivated Comments 11/09/2019 1:37 PM 11/09/2019 1:37 PM Care Teams Bin Packer Relationship Specialty Start Date End Date Liliane Mccabe MD [address] [facility] [address] PCP - General Family Medicine 11/07/23 Anca Watkins MD [address] [place] [address] Consulting Physician Psychiatry 03/10/19 Avery Moreno MD [address] [place] [address] [address] [place] [address] Wood Heel Fitter Machine Obstetrics and Gynecology 03/10/19 Rob Vaughn MD [address] [place] [address] [address] [place] [address] Anesthesiologist Pain Management 04/10/22
--- OUTSIDE RECORDS SUMMARY | 2025-01-13 01:49 | XMS_ITS | Clinical Summary ---
Author Organization [facility] Address [address] [place] [address] Phone Care Team Providers Care World Designer Name Role Phone Unavailable Primary Care Provider [...] Most Recently Relevant to Health Maintenance Insurance [facility]
--- OUTSIDE RECORDS SUMMARY | 2025-01-13 01:49 | XMS_ITS | Encounter Summary ---
Author Organization [facility] Address [address] [place] [address] Care Team Providers Care Fish Processing Supervisor Name Role Phone Tana Hester DO Primary Care Provider [phone]- [phone] Encounter Details Date Type Department Care Team (Late st Contact Info) Description 02/14/2021 Lab Requisition [facility] Laboratory Services [address] [place] [address] [place] [address] [facility] [address] [place] [address] Social History Tobacco Use Types Packs/Day Years [...] (COVID-19) PCR DETECTION Routine 02/14/2021 9:15 PM CONVERSION DEVELOPER documented in this encounter Results * 2019 NOVEL CORONAVIRUS (COVID-19) PCR DETECTION (02/14/2021 9:15 PM CONVERSION DEVELOPER) COVID-19 PCR NOT DETECTED Not Detected 02/15/19 2:10 AM CONVERSION DEVELOPER [facility] PERFORMING LAB [facility] 02/15/2021 2:10 AM CONVERSION DEVELOPER [facility] Upper Respiratory Collection / Unknown 02/14/2021 9:15 PM CONVERSION DEVELOPER 02/14/2021 9:25 PM CONVERSION DEVELOPER Narrative [facility] - 02/15/2021 2:10 AM CONVERSION DEVELOPER This test has been authorized by the [...] MICROBIOLOGY - GENERAL ORDER STEVEN Final Result [facility] CLIA# [id number] [place] [address] documented in this encounter Visit Diagnoses Not on filedocumented in this encounter Care Teams Fish Processing Supervisor Relationship Specialty Start Date End Date Tana Hester DO PCP - General Family Practice 10/19/19 documented as of this encounter
--- OUTSIDE RECORDS SUMMARY | 2025-01-13 01:49 | XMS_ITS | Encounter Summary ---
Author Organization [facility] Address [address] [place] [address] Phone Care Team Providers Care Correctional Supervising Cook Name Role Phone Unavailable Primary Care Provider Unavailabl e Reason for Visit * Reason Comments Medication Refill Encounter Details Date Type Department Care Team (Late st Contact Info) Description 06/17/2023 Refill [facility] - [facility]3] [address] [place] [address] Jose David Manjarrez MD [address] [address] Medication Refill Social History Tobacco Use Types [...]
--- OUTSIDE RECORDS SUMMARY | 2025-01-13 01:49 | XMS_ITS | Clinical Summary ---
Author Organization [facility] Address [address] [place] [address] Care Team Providers Care Rn Wellness Name Role Phone Tana Hesterban TEJADA Primary Care Provider [phone]- [phone] Allergies No known active allergies Medications esomeprazole (NexIUM) 20 mg Capsule, Delayed Release(E.C.) Take one capsule by mouth once daily as needed 90 Capsule 1 04/17/2018 7:10 AM FABRIC WORKER LEADER 9 Active halobetasol propionate (ULTRAVATE) 0.05 % [...] 4 days. 4 Tablet 02/20/2021 7:01 AM FABRIC WORKER LEADER 1 Active valACYclovir (VALTREX) 1 gram tablet Take 1 Tablet (1,000 mg) by mouth daily. 30 Tablet 2 01/31/2022 5:43 PM FABRIC WORKER LEADER 2 Active doxepin (SILENOR) 3 mg Tablet Take 1 Tablet (3 mg) by mouth nightly as needed for sleep. 30 Tablet 4 03/14/2022 5:55 PM FABRIC WORKER LEADER 2 Active doxepin (SINEquan) 10 mg capsule Take 1 Capsule (10 mg) by mouth daily at bedtime. 30 Capsule 5 11/25/2021 5:34 PM CDT 2 Active meloxicam (MOBIC) 15 mg tablet Take 1 Tablet (15 mg) by mouth daily. 30 Tablet 11 03/05/2023 7:01 AM FABRIC WORKER LEADER 3 Active modafiniL (PROVIGIL) 200 mg Tablet [...] meals. 60 Capsule 3 01/31/2023 7:04 AM FABRIC WORKER LEADER 3 Active cyclobenzaprine (FLEXERIL) 10 mg tablet Take 1 Tablet (10 mg) by mouth 2 times daily as needed for muscle spasm. 30 Tablet 10/25/2022 7:26 AM CDT 3 Active traZODone (DESYREL) 50 mg tablet Take One-Half to 1 Tablet (25-50 mg) by mouth nightly as needed for sleep 90 Tablet 1 01/31/2023 7:04 AM FABRIC WORKER LEADER 3 Active metoclopramide HCl (REGLAN) 10 mg [...] Active Immunizations Immunization Administration Dates Next Due (Duogou)(12 YR UP) COVID-19 VACCINE - EMERGENCY USE AUTHORIZATION, MRNA, [id number](PF) 30 MCG/0.3 ML IM SUSP 02/29/2020,02/07/2020 Influenza [...] Last Done Comments HPV/Cotest (21-29) 1985 HPV/Cotest (30-65) 1994 FIT-DNA Q 3 years 2009 FIT/FOBT Q 1 year 2009 Flex Sig/CT Colonography Q 5 years 2009 ZOSTER VACCINE (1 of 2) 2014 CERVICAL CANCER SCREENING 10/09/2021 PAP SMEAR 10/09/2021 10/09/2018 BREAST CANCER SCREENING 02/07/2024 02/07/20 23, 02/06/2023, 02/01/2022, Additional history exists INFLUENZA VACCINE (#1) 2024 , 11/08/2021, 11/10/2020, Additional history exists COVID-19 Vaccine [...] OR WO CAD Routine 02/06/2023 8:13 AM FABRIC WORKER LEADER Breast cancer screening by mammogram from Last 3 Months or Most Recently Relevant to Health Maintenance Results * MAMMO 3D LAURA SCREEN BILAT W OR WO CAD (02/06/2023 8:13 AM FABRIC WORKER LEADER) Anatomical Region Laterality Modality Breast Bilateral Mammography 02/06/2023 8:13 AM FABRIC WORKER LEADER Impressions 02/06/2023 12:23 PM FABRIC WORKER LEADER IMPRESSION: No mammographic evidence of malignancy. OVERALL FINAL ASSESSMENT: BI-RADS CATEGORY 1: Negative RECOMMENDATIONS: Annual screening. The above findings should be correlated with physical examination. A relatively nonspecific study should not preclude additional evaluation if suspicious findings are present clinically. An [employer] certified facility. DICTATION LOCATION: [facility] Narrative 02/06/2023 12:23 PM FABRIC WORKER LEADER MAMMOGRAMS SCREENING DIGITAL BILATERAL WITH CAD AND [...] if suspicious findings are present clinically. An [employer] certified facility. DICTATION LOCATION: [facility] Malena Pina NP MAMMO ORDERABLES Final Resul t from Last 3 Months or Most Recently Relevant to Health Maintenance Insurance RX [employer] Commercial RX [employer] (INTERNAL) [facility] [employer] RX [employer] Commercial RX [facility] [employer] Care Teams Rn Wellness Relationship Specialty Start Date End Date Tana Hester DO PCP - General Family Practice 10/19/19
[2025-01-13] MEDS: LACTATED RINGERS 1,000 ML 30 ML IV CONT ×2 (06:30→09:44)
--- NOTE | 2025-01-13 06:56 | WPDANESEPPF ---
Anes - Initial Pre Proc Eval Procedure: Operation Date: 01/13/25 07:30 Proposed Procedures p Left Custom Total Knee Arthroplasty - Jamar Rowan MD Date/Time: 01/13/25 06:56 Surgeon: Jamar Rowan MD Pre Op Diagnosis: primary OA left knee Patient Data Age: 59 Gender: F Height: 1.6 m Weight: 70.35 kg Last Vital Signs Temp 36.8 C 12/22/24 12:48 Pulse 64 12/22/24 12:48 Resp 18 12/22/24 12:48 BP 107/68 12/22/24 12:48 Pulse Ox 97 12/22/24 12:48 O2 Del Method Room Air 12/22/24 12:48 Allergies Allergy/AdvReac Type Severity Reaction Status Date / Time latex Allergy Mild Rash Verified 12/22/24 12:03 Home Medications ?Medication ?Instructions ?Recorded ?Confirmed ?Type atenolol 25 mg tablet 25 mg PO DAILY 11/17/20 12/22/24 History duloxetine 60 mg capsule,delayed 60 mg PO DAILY 11/17/20 12/22/24 History release (Cymbalta) vilazodone 40 mg tablet (Viibryd) 40 mg PO DAILY 11/17/20 12/22/24 History duloxetine 30 mg capsule,delayed 30 mg PO DAILY 04/30/23 12/22/24 History release multivitamin 1 tablet PO DAILY 04/30/23 12/22/24 History cyclobenzaprine 10 mg tablet 10 mg PO HS PRN muscle spasms #30 06/09/24 12/22/24 Rx tabs aspirin 81 mg tablet 81 mg PO DAILY 12/22/24 12/22/24 History collagen, glycosaminoglycans 260 1 cap PO DAILY 12/22/24 12/22/24 History mg-vitamin C 30 mg capsule cyclosporine 0.05 % eye drops in a 1 drp EACH EYE Q12H 12/22/24 12/22/24 History dropperette (Restasis) flaxseed oil 1,000 mg capsule 1,000 mg PO DAILY 12/22/24 12/22/24 History loratadine 10 mg capsule (Allergy 10 mg PO DAILY 12/22/24 12/22/24 History Relief (loratadine)) naproxen 220 mg-diphenhydramine 25 1 tablet PO HS 12/22/24 12/22/24 History mg tablet (Aleve PM) tirzepatide 5 mg/0.5 mL 5 mg subcut .TWICE A MONTH 12/22/24 12/22/24 History subcutaneous pen injector (Azeb) tramadol 50 mg tablet 50 mg PO Q6H PRN pain #28 tabs 12/22/24 12/22/24 Rx turmeric 400 mg capsule 400 mg PO DAILY 12/22/24 12/22/24 History valacyclovir 1 gram tablet 1,000 mg PO PRN 12/22/24 12/22/24 History (Valtrex) Laboratory Tests 01/13/25 06:18 Blood Type Pending Antibody Screen Pending Patient hx anesthesia problems: post op nausea/vomiting Family hx anesthesia problems: none Results Review: All pre-operative results and documents have been reviewed as part of the pre-operative evaluation. [facility] Past Medical History Medical History Anxiety SALOMON (obstructive sleep apnea) Tachycardia Arthritis of carpometacarpal (CMC) joint of left thumb Surgical History Surgical History History of total right knee replacement (~2008) Status post medial meniscectomy of left knee History of repair of right rotator cuff (~04/13/21) w/Subacromial Decompression Family History Family History Other Family history of malignant neoplasm of bone Family history of malignant neoplasm of male breast Social History Social History Smoking status: Never smoker Additional smoking assessment comments: DENIES ANY FORM OF TOBACCO USE Alcohol intake: current Substance use: current Lack of Transportation: No Lack of Food: Never True Current Housing: I Have Housing Concerned About Future Housing: No Difficulty Paying Gas/Electric Bills: No Difficulty Paying for Meds: No Currently Unemployed: No Education: Associate Degree Difficulty w/ Childcare or Family Care: No Living arrangements: with family Spiritual care concerns: No Anes - Eval Final PreProcedure Day of Procedure 01/13/25 06:56 Patient weight: overweight Heart: regular rate and rhythm Lungs: clear to auscultation Airway: Mallampati scale class II Neurological: alert and oriented Last oral intake: >/= 8 hours ASA classification: III Emergent: no Anesthetic plan: proceed Anesthesia type and monitoring: general LMA and standard monitoring Results Review: All pre-operative results and documents have been reviewed as part of the pre-operative evaluation. Informed Consent: The patient's anesthetic plan and its attendant risks and benefits were discussed with the patient/family/POA. Questions were solicited and answers provided to the satisfaction of the patient/family/POA.
[2025-01-13] MEDS: ACETAMINOPHEN 500 MG TABLET 1000 MG PO (07:05)
[2025-01-13] MEDS: TRANEXAMIC ACID 1,000MG/ISO100 1,000 MG/100 ML BAG 200 MG IVPB (07:05)
--- NOTE | 2025-01-13 07:18 | WPDHPUPDATE1 ---
History and Physical Update Update Date/Time: 01/13/25 07:18 History and Physical has been reviewed, including an updated exam of the patient. There are NO changes in the patient's condition. Risks, benefits, and alternatives have been discussed and questions answered. Patient agrees to proceed with procedure.
[2025-01-13] MEDS: ceFAZolin 2 GM in SODIUM CHLORIDE 0.9% IV 50 ML 100 ML IVPB ×3 (07:31→23:32)
[2025-01-13] MEDS: SCOPOLAMINE 1 MG PATCH 1 PATCH TRANSDERM (07:40)
[2025-01-13] MEDS: SODIUM CHLORIDE 0.9% IV 37.7 ML, MORPHINE SULFATE INJ (*CRX) 2 MG, ROPivacaine HCL 1% 2... INFILTRATE (08:04)
[2025-01-13] MEDS: fentaNYL CITRATE INJ (*CRX) 100 MCG/2 ML VIAL 25 MCG IV PUSH ×7 (10:05→10:43)
[2025-01-13] MEDS: ONDANSETRON INJ 4 MG/2 ML VIAL IV PUSH (10:18)
--- NOTE | 2025-01-13 11:17 | ADMGEN ---
This patient, Casie Barnes, was admitted to [facility] Surg Room 302-01. Patient/family oriented to hospital policies and general routines including ID bracelet, bed and alarms, visiting hours, pain management, procedures, bathroom and other care routines, personal items, smoking policy, room service/diet, and visiting hours. Information on how to activate the Rapid Response Team has been discussed. Patient/Family are encouraged to report perceived risks to care and to ask questions if they do not understand what they are told or what they should do. received report from cat.
--- NOTE | 2025-01-13 12:33 | P.OP_ITS ---
Procedure Note - Detailed Date of Procedure 01/13/25 Pre-op Diagnosis Left knee degenerative arthritis. Post-op Diagnosis Same Procedure Performed Custom total knee arthroplasty, left. Surgeon Jamar Rowan MD Junior Business Analyst Elis Cody PA-C Anesthesia General Findings Severe varus disease. Moderate medial tibial erosion. PCL released. Description of Procedure Preoperative antibiotics were given. The limb was prepped and draped in the usual sterile fashion with a well-padded tourniquet high on the thigh. The limb was exsanguinated and the tourniquet inflated to 300 mmHg during exposure and cementation. A longitudinal incision was created just medial to the patella. A subvastus approach to the knee was performed. Arthrotomy was taken down through the joint capsule. No significant releases were initially taken. The femur was exposed and the F1 jig was applied. The coring tool was used to remove the cartilage for the F2 jig to sit flush with the bone. The jig was pinned and the distal cut carefully taken. Caliper measurements confirmed appropriate bony resections according to the preoperative templated plan. The F4 cutting jig for the femur was applied, at the standard rotation. The AP and anterior chamfer cuts were taken. The F5 jig was applied and the posterior chamfer cuts were taken. The tibia was prepared using the T1 jig, after removing cartilage for the jig contact points. Proper alignment was checked with the alignment taylor. The tibia was cut using the T1u guide. Gap balancing was performed. Gap measurements were taken and the knee was trialed. Excellent alignment and soft tissue balancing was confirmed. The posterior cruciate ligament was recessed along the proximal tibia. The patella was cut for resurfacing. Three lug holes were drilled. Meniscal remnants were removed. The trial components were assembled. Excellent range of motion and proper soft tissue balancing were confirmed throughout the full range of motion. Patellar tracking was excellent. The knee was copiously irrigated periodically throughout the procedure. The real implants were cemented into position. Excess cement was carefully removed. The wound was closed in layers with interrupted #1 Vicryl suture, 2-0 strata fix suture, 0 strata fix suture, 2-0 strata fix suture. Steri-Strips placed on the skin with the knee flexed. Sterile bulky dressing applied. The patient was brought to the recovery room in stable condition. There were no complications. Physician reproductive healthcare assistant, Elis Cody PA-C, required for surgery; including patient positioning, draping, tissue retraction, maintaining instrument position, cement removal, wound closure, and dressing placement. Implants Conformis Custom total knee arthroplasty. Cemented. Cruciate retaining. 35 mm oval patella. Estimated Blood Loss 50 Drains No Complications No immediate complications Condition Stable Disposition PACU [facility] Billing Surgery - Charge Forward: Surgery Billing
[2025-01-13] MEDS: ACETAMINOPHEN 325 MG TABLET 650 MG PO ×2 (12:39→18:19)
[2025-01-13] MEDS: ASPIRIN 81 MG ENTERIC TABLET PO ×2 (12:40→21:25)
[2025-01-13] MEDS: FAMOTIDINE 20 MG TABLET PO ×2 (12:40→21:25)
[2025-01-13] MEDS: SENNA/DOCUSATE SODIUM TABLET 2 TAB PO (12:40)
[2025-01-13] MEDS: cycloSPORINE 0.4 ML OPHTH SOLUTION 1 DROP EACH EYE ×2 (12:41→21:25)
[2025-01-13] MEDS: IBUPROFEN 600 MG TABLET PO (21:23)
[2025-01-13] MEDS: traMADol HCL (*CRX) 50 MG TABLET PO (23:31)
[2025-01-14 00:46] VITALS: BP 106/61; PULSE 62; RESP 17; TEMP 36.3; O2SAT 97
[2025-01-14] MEDS: traMADol HCL (*CRX) 50 MG TABLET PO ×2 (04:31→10:45)
[2025-01-14 04:47] VITALS: BP 106/51; PULSE 88; RESP 16; TEMP 36.3; O2SAT 96
[2025-01-14] MEDS: BENZOCAINE/MENTHOL (*BKC) 18 EA LOZENGE 1 LOZENGE PO (05:11)
[2025-01-14 06:34] LABS: Hematocrit 37.0 % (37.0-47.0); Hemoglobin 12.4 g/dL (12.0-15.0); Immature Granulocyte Percent A 0.6 % (0-0.5); Lymphocytes Absolute Auto 1.75 K/mm3 (0.9-3.2); Mean Corpuscular HGB Conc 33.5 g/dl (32-36); Mean Corpuscular Hemoglobin 29.8 pg (26-34); Mean Corpuscular Volume 88.9 fl (80-100); Nucleated Red Blood Cells Absolute Auto 0.000 K/mm3 (0.0-0.012); Nucleated Red Blood Cells Perc 0.0 % (0.0-0.2); Platelet Count Result 221 k/mm3 (150-375); Red Blood Count 4.16 M/mm3 (4.2-5.4); White Blood Count 12.7 K/mm3 (4.5-10.0)
[2025-01-14] MEDS: ceFAZolin 2 GM in SODIUM CHLORIDE 0.9% IV 50 ML 100 ML IVPB (06:34)
[2025-01-14 06:53] LABS: Anion Gap 1 mmol/L (4-12); Blood Urea Nitrogen 16 mg/dL (7-17); Calcium 8.9 mg/dL (8.4-10.2); Carbon Dioxide 30 mmol/L (22-30); Chloride 103 mmol/L (98-107); Estimated CRCL calculation 49 ml/min; Estimated Glomerular Filt Rate > 60; Glucose 95 mg/dL (65-110); Potassium 3.9 mmol/L (3.4-5.0); Sodium 134 mmol/L (137-145)
[2025-01-14 08:34] VITALS: BP 109/64; PULSE 60; RESP 14; O2SAT 97
[2025-01-14] MEDS: ASPIRIN 81 MG ENTERIC TABLET PO (08:46)
[2025-01-14] MEDS: FAMOTIDINE 20 MG TABLET PO (08:47)
[2025-01-14] MEDS: cycloSPORINE 0.4 ML OPHTH SOLUTION 1 DROP EACH EYE (08:47)
[2025-01-14] MEDS: SENNA/DOCUSATE SODIUM TABLET 2 TAB PO (08:47)
--- NOTE | 2025-01-14 09:24 | PM.PNORT ---
Progress Note: A&P Assessment and Plan (1) Status post total left knee replacement: Code(s): Z96.652 - Presence of left artificial knee joint Status: Acute Assessment and Plan: Postop day 1: Total knee arthroplasty. Patient tolerated procedure well. No complications. Pain manageable with pain medication. No numbness or tingling. We had a lengthy discussion regarding postoperative wound care, limitations, expectations, and exercises. Patient shows good understanding. He has had initial physical therapy and is tolerating it well. Patient has followup appointment with Dr. Rowan in 3 weeks. Subjective Subjective Date/Time Seen: 01/14/25 09:24 Interval history: Patient resting comfortably. No distal numbness or tingling. No other complaints. Review of Systems Review of Systems: All systems reviewed & are unremarkable except as noted in HPI and below Exam Narrative: 59-year-old female. Resting comfortably in chair. Alert and oriented x3. No acute distress. Wearing compression socks bilaterally. Dressing dry and intact without drainage. Mild swelling. No ecchymosis. No erythema. No hematoma. Range of motion limited due to pain. Calf nontender. Neurologic status intact. No varicosities. Distal pulses palpable. Quad fires. Objective Data Vital Signs Vital Signs: Vital Signs - 24 hr 01/13/25 09:44 01/13/25 09:55 01/13/25 10:10 Temperature 97.0 F L Pulse Rate 78 90 84 Respiratory Rate 18 18 16 Blood Pressure 97/60 L 97/62 L 107/63 Pulse Oximetry 100 100 100 Oxygen Delivery Simple Face Mask Simple Face Mask Simple Face Mask Oxygen Flow Rate 8 8 8 01/13/25 10:25 01/13/25 10:40 01/13/25 10:50 Temperature 97.0 F L Pulse Rate 87 81 80 Respiratory Rate 20 12 12 Blood Pressure 107/62 111/55 L 97/55 L Pulse Oximetry 100 96 92 Oxygen Delivery Room Air Room Air Room Air Oxygen Flow Rate 01/13/25 11:00 01/13/25 11:15 01/13/25 11:25 Temperature 96.8 F L Pulse Rate 86 80 Respiratory Rate 15 18 Blood Pressure 97/54 L 98/58 L Pulse Oximetry 95 98 Oxygen Delivery Room Air Room Air Oxygen Flow Rate 01/13/25 11:40 01/13/25 11:47 01/13/25 12:10 Temperature 96.7 F L 96.9 F L Pulse Rate 75 70 Respiratory Rate 18 16 Blood Pressure 103/58 L 95/47 L Pulse Oximetry 97 97 Oxygen Delivery Room Air Oxygen Flow Rate 01/13/25 13:03 01/13/25 13:10 01/13/25 16:00 Temperature 96.1 F L 96.2 F L Pulse Rate 80 60 Respiratory Rate 17 17 Blood Pressure 101/47 L 99/51 L Pulse Oximetry 95 98 Oxygen Delivery Room Air Oxygen Flow Rate 01/13/25 20:47 01/13/25 21:25 01/14/25 00:46 Temperature 97.3 F L 97.4 F L Pulse Rate 56 L 62 Respiratory Rate 18 17 Blood Pressure 99/55 L 106/61 Pulse Oximetry 96 97 Oxygen Delivery Room Air Oxygen Flow Rate 01/14/25 04:47 01/14/25 08:34 Temperature 97.3 F L Pulse Rate 88 60 Respiratory Rate 16 14 Blood Pressure 106/51 L 109/64 Pulse Oximetry 96 97 Oxygen Delivery Oxygen Flow Rate Intake/Output Intake/Output: Intake & Output 01/11/25 01/12/25 01/13/25 01/14/25 23:59 23:59 23:59 23:59 Intake Total 1080 600 Balance 1080 600 Meds/Results Medications: Active Medications Generic Name Dose Route Start Last Admin Trade Name Freq PRN Reason Stop Dose Admin Acetaminophen 650 mg 01/13/25 12:00 01/14/25 05:42 Acetaminophen 325 Mg Tablet PO Not Given Q6HR AFSHIN Aspirin 81 mg 01/13/25 11:02 01/14/25 08:46 Aspirin 81 Mg Enteric Tablet PO 81 mg Q12HR AFSHIN Administration Atenolol 25 mg 01/14/25 09:00 01/14/25 08:47 Atenolol 25 Mg Tablet PO Not Given DAILY AFSHIN Benzocaine 1 lozenge 01/14/25 04:40 01/14/25 05:11 Benzocaine/Menthol (*Bkc) 18 Ea Lozenge PO 1 lozenge PRN PRN Administration Sore Throat Cyclobenzaprine HCl 10 mg 01/13/25 11:02 Cyclobenzaprine Hcl 10 Mg Tablet PO Q8H PRN Spasms Cyclosporine 1 drop 01/13/25 11:02 01/14/25 08:47 Cyclosporine 0.4 Ml Ophth Solution EACH EYE 1 drop Q12HR AFSHIN Administration Diphenhydramine HCl 25 mg 01/13/25 11:02 01/14/25 05:03 Diphenhydramine Hcl Inj 50 Mg/Ml Vial IV PUSH 25 mg Q6H PRN Administration Itching Duloxetine HCl 60 mg 01/14/25 09:00 01/14/25 08:48 Duloxetine Hcl 60 Mg Capsule. PO Not Given DAILY AFSHIN Duloxetine HCl 30 mg 01/14/25 09:00 01/14/25 08:48 Duloxetine Hcl 30 Mg Capsule. PO Not Given DAILY AFSHIN Famotidine 20 mg 01/13/25 11:02 01/14/25 08:47 Famotidine 20 Mg Tablet PO 20 mg Q12HR AFSHIN Administration Hydromorphone HCl 1 mg 01/13/25 11:02 Hydromorphone Hcl Inj (*Crx) 1 Mg/Ml Syr IV PUSH Q2H PRN Breakthrough Pain Rated 7-10 or NPO Hydromorphone HCl 0.5 mg 01/13/25 11:02 Hydromorphone Hcl Inj (*Crx) 1 Mg/Ml Syr IV PUSH Q2H PRN Breakthrough Pain Rated 4-6 or NPO Ibuprofen 800 mg in 200 mls @ 400 mls/hr 01/13/25 11:02 Caldolor 800 Mg/200 Ml IVPB Q6H PRN Breakthrough Pain Rated 1-3 or NPO Ibuprofen 400 mg 01/13/25 11:02 Ibuprofen 400 Mg Tablet PO Q6H PRN Pain Rated 1-3 Ibuprofen 600 mg 01/13/25 11:02 01/13/25 21:23 Ibuprofen 600 Mg Tablet PO 600 mg Q6H PRN Administration Pain Rated 4-6 Naloxone HCl 0.1 mg 01/13/25 11:02 Naloxone Hcl 0.4 Mg/Ml Vial IV PUSH Q2M PRN Opiate Reversal Ondansetron HCl 4 mg 01/13/25 11:02 Ondansetron Inj 4 Mg/2 Ml Vial IV PUSH Q4H PRN Nausea And Vomiting Polyethylene Glycol 17 gm 01/14/25 09:00 01/14/25 08:47 Polyethylene Glycol 3350 17 Gm Powd.Pack PO 17 gm QAM AFSHIN Administration Prednisone 5 mg 01/13/25 17:00 01/13/25 18:19 Prednisone 5 Mg Tablet PO 5 mg DAILY@1700 AFSHIN Administration Senna/Docusate Sodium 2 tab 01/13/25 11:02 01/14/25 08:47 Senna/Docusate Sodium Tablet PO 2 tab BID AFSHIN Administration Tramadol HCl 50 mg 01/13/25 11:02 01/14/25 04:31 Tramadol Hcl (*Crx) 50 Mg Tablet PO 50 mg Q4H PRN Administration Pain Rated 6-10 Radiology Results: ITS Impressions Knee X-Ray 01/13/25 10:11 Impression: No acute fracture or malalignment. Labs Labs: Laboratory Results - last 24 hr 01/14/25 05:40 WBC 12.7 H RBC 4.16 L Hgb 12.4 Hct 37.0 MCV 88.9 MCH 29.8 MCHC 33.5 RDW 12.7 Plt Count 221 MPV 9.1 Immature Gran % (Auto) 0.6 H Neut % (Auto) 80.5 H Lymph % (Auto) 13.8 L Armstrong % (Auto) 4.7 Eos % (Auto) 0.2 Baso % (Auto) 0.2 Lymph # (Auto) 1.75 Armstrong # (Auto) 0.6 Eos # (Auto) 0.0 Baso # (Auto) 0.0 Abs Immat Gran (auto) 0.07 H Absolute Neuts (auto) 10.2 H Absolute Nucleated RBC 0.000 Nucleated RBC % 0.0 Sodium 134 L Potassium 3.9 Chloride 103 Carbon Dioxide 30 Anion Gap 1 L BUN 16 Creatinine 0.88 Estim Creat Clear Calc 49 Estimated GFR > 60 Glucose 95 Calcium 8.9
[2025-01-14 09:31] VITALS: O2SAT 97
== END 2025-01-14 11:10 | disposition home or self-care (01) ==
LOC: ANHSURGERY 07:19 → ANH3MEDSUR 11:10
PROVIDERS: Physician Assistant Surgical; PCP Family Medicine; Visit Provider Orthopaedic Surgery
PROC: (CPT 27447; principal; 2025-01-13 07:30)
DX: M17.12 Unilateral primary osteoarthritis, left knee (principal); F41.9 Anxiety disorder, unspecified; G47.33 Obstructive sleep apnea (adult) (pediatric); M18.12 Unilateral primary osteoarthritis of first carpometacarpal joint, left hand; R00.0 Tachycardia, unspecified; Z79.82 Long term (current) use of aspirin; Z79.891 Long term (current) use of opiate analgesic; Z79.1 Long term (current) use of non-steroidal anti-inflammatories (NSAID); Z79.85 Long-term (current) use of injectable non-insulin antidiabetic drugs; Z98.890 Other specified postprocedural states; Z96.651 Presence of right artificial knee joint; Z80.8 Family history of malignant neoplasm of other organs or systems; Z80.3 Family history of malignant neoplasm of breast
CPT/HCPCS: 27447; 36415; 73560; 80048; 85025; 86850; 86900; 86901; 97110; 97161; 97166; 97530; 97535; J0690; A9270; C1713; C1776; J0166; J1100; J1200; J1885; J2003; J2250; J2270; J2405; J2704; J2795; J3010; J3290; J7120; J7512

== ENCOUNTER 2025-02-07 12:00 | Outpatient (CLI) | payer OTHER, SELFPAY ==
--- NOTE | ~2025-02-07 | US_ITS ---
EXAMINATION: US venous doppler [facility] DATE: 02/07/2025 12:55 INDICATION: Left lower limb swelling TECHNIQUE: Grayscale ultrasound images without and with compression and Doppler ultrasound images of the left lower extremity veins were obtained. COMPARISON: None. FINDINGS: The visualized portions of left common femoral vein, profunda (deep) femoral vein, femoral vein, popliteal vein, peroneal veins, posterior tibial veins, gastrocnemius vein and greater saphenous vein outflow are patent. IMPRESSION: 1. No deep venous thrombosis in the left lower limb. Reviewed, dictated and finalized at location A. ET ENGINEER
--- OUTSIDE RECORDS SUMMARY | 2025-02-07 12:30 | XMS_ITS | Encounter Summary ---
Author Organization [facility] Healthcare Address [address] [place] [address] Care Team Providers Care Aerial Gunner Name Role Phone Anca Watkins MD Unavailable Avery Moreno MD Unavailable [phone] Rob Vaughn MD Unavailable Liliane Mccabe MD Primary Care Provide r Encounter Details Date Type Department Care Team (Late st Contact Info) Description 01/13/2025 Results Follow-Up [facility] [address] [facility] [address] [place] [address] Malena Pina, M[facility] LEAD PSYCHOLOGIST [address] [address] Pap, reflex HPV Social History Tobacco Use Types Packs/Day Years Used Date Smoking Tobacco: Never Passive Smoke Exposure: Never Smokeless Tobacco: Never Alcohol Use Standard [...] on file Legal Sex Female 10:10 AM AIRPORT OPERATIONS MANAGER Gender Identity Female 03/29/2020 10:19 PM AIRPORT OPERATIONS MANAGER Sexual Orientation Straight 10/14/2019 6: 14 PM CDT documented as of this encounter Plan of Treatment Not on file documented as of this encounter Visit Diagnoses Not on filedocumented in this encounter Care Teams Aerial Gunner Relationship Specialty Start Date End Date Liliane Mccabe MD [address] [facility] [address] [place] [address] PCP - General Family Medicine 11/07/23 Anca Watkins MD [address] [place] [id number] Consulting Physician Psychiatry 03/10/19 Aveyr Moreno MD [address] [place] [address] [address] [place] [address] Car Stereo Installer Obstetrics and Gynecology 03/10/19 Rob Vaughn MD [address] [place] [address] [address] [place] [address] Anesthesiologist Pain Management 04/10/22 documented as of this encounter
--- OUTSIDE RECORDS SUMMARY | 2025-02-07 12:30 | XMS_ITS | Encounter Summary ---
Author Organization [facility] Address [address] [place] [address] Phone Care Team Providers Care Relief Map Modeler Name Role Phone Unavailable Primary Care Provider Unavailabl e Reason for Visit * Reason Comments Medication Refill Encounter Details Date Type Department Care Team (Late st Contact Info) Description 06/17/2023 Refill [facility] - Family [facility] [address] [place] [address] Jose David Manjarrez MD [address] [address] Medication Refill Social History Tobacco Use Types [...]
--- OUTSIDE RECORDS SUMMARY | 2025-02-07 12:30 | XMS_ITS | Clinical Summary ---
Author Organization [facility] Building B Address [address] [place] [address] Care Team Providers Care Head Field Hockey Coach Name Role Phone Anca Watkins MD Unavailable [phone] Avery Moreno MD Unavailable Rob Vaughn MD Unavailable [phone] Liliane Mccabe MD Primary Care Provide r [...] of the posterior mitral valve leaflet with gncl-nu-zxxaprbr MR, mild TR on echo 24 Jun 2024. LVEF of 60-65%. Patient told me she had mild mitral valve prolapse also on an echo over 20 years ago. On atenolol 25 mg daily. Assessment & Plan (09/07/2024 11:50 AM CDT): I showed patient the latest echo pictures. 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 We discussed [...] pushing the ultrasound machine for Radiology at [facility]. BMI 29.0-29.9,adult 05/18/2024 Encounter for wellness examination [...] beta-vesta. We discussed that her symptoms on surveillance monitor in June 2024 were not associated with anything significant. No change in medical regimen here. Patient denies excessive caffeine use or high energy drinks. No significant PAC or PVC count anyway on the latest monitor. Assessment & Plan (05/18/2024 8:28 AM CDT): Chronic Worsening over the past 6 months Recent labs were wnl 14 day surveillance monitor and TTE Continue atenolol as [...] 12/27/2019 Assessment & Plan (12/30/2019 9:51 AM PARK INTERPRETIVE RANGER): Symptoms worsening slightly. Patient to use qwgq-mln-ppplqcv medications to treat symptoms. If symptoms continue to worsen or she develops any worrisome signs or symptoms please go to nearest emergency room. FMLA paperwork will be completed. Myalgia 11/30/2019 Arthralgia 10/28/2019 Assessment & Plan (04/10/2022 9:41 AM PARK INTERPRETIVE RANGER): Pain worsening, would like to consult with [...] months Assessment & Plan (04/14/2023 8:14 AM PARK INTERPRETIVE RANGER): LDL near goal of < 100, continue dietary modifications and daily exercise. Assessment & Plan (04/10/2022 9:42 AM PARK INTERPRETIVE RANGER): LDL near goal of < 100, low chol diet recommended. Assessment & Plan (06/13/2021 1:39 PM CDT): LDL near goal of < 100. Low chol diet recommended. Patient declines a statin at this time. Assessment & Plan (04/09/2021 11:58 AM PARK INTERPRETIVE RANGER): Aspirin for prevention. Assessment & Plan (04/03/2020 9:56 AM PARK INTERPRETIVE RANGER): Low-cholesterol diet recommended. Continue wjbu-ebc-jhyvzfq omega-3 fatty acids as directed. Assessment & Plan (03/10/2019 11:09 AM PARK INTERPRETIVE RANGER): Low chol diet recommended. Seasonal allergies 05/15/2015 Assessment & Plan (03/10/2019 11:09 AM PARK INTERPRETIVE RANGER): Stable. Cont. Current meds. Major depressive disorder, recurrent episode, mo derate 03/08/2015 Overview (03/10/2019): Managed by psychiatry-Dr. Watkins Assessment & Plan (05/17/2024 12:09 PM CDT): Managed by psychiatry. Assessment & Plan (11/05/2023 12:55 PM CDT): Managed by psychiatry. Assessment & Plan (03/10/2019 11:09 AM PARK INTERPRETIVE RANGER): Managed by psychiatry. Mitral valve prolapse 06/26/2013 [...] psychiatry. Assessment & Plan (03/10/2019 11:09 AM PARK INTERPRETIVE RANGER): Managed by psychiatry. Resolved Problems Problem Noted Date Diagnosed Date Resolved Date Encounter to establish care 11/05/2023 05/18/2024 Assessment & Plan (11/05/2023 12:56 PM CDT): Medical history reviewed and discussed F/u in 6 months for annual with labs Gallstones 05/31/2020 06/21/2020 Gallstones 04/03/2020 07/26/2020 Assessment & Plan (04/03/2020 9:57 AM PARK INTERPRETIVE RANGER): No acute abdominal pain today. Patient requests referral to fire boat engineer. Referral given. Class 1 obesity due to exces s calories with serious comorbidity and body mass index (BMI) of 30.0 to 30.9 in adult 11/30/2019 01/23/2024 Assessment & Plan (11/07/2023 9:23 AM CDT): Weight reduction, daily exercise and dietary modifications recommended., as obesity can complicate their hypercholesterolemia Assessment & Plan (04/14/2023 8:14 AM PARK INTERPRETIVE RANGER): Weight reduction, daily exercise and dietary modifications recommended., as obesity can complicate their hypercholesterolemia Assessment & Plan (06/13/2021 1:38 PM CDT): Weight reduction, daily exercise and dietary modifications recommended. Assessment & Plan (04/09/2021 11:59 AM PARK INTERPRETIVE RANGER): Weight reduction, daily exercise and dietary modifications recommended. Assessment & Plan (12/05/2019 1:29 PM CDT): Weight reduction, daily exercise and dietary modifications recommended. Blood in stool 10/26/2019 11/30/2019 Overview (10/26/2019): Added automatically from request for surgery [id number] Gastroesophageal reflux disease 11/14/2015 03/10/2019 Tachycardia 06/26/2013 03/10/2019 Overview (05/17/2016): Tachycardia Encounters Date Type Department Care Team Description 01/13/2025 Results Follow-Up Ree Heightseliana Munoz [address] [place] [address] [address] [place] [address] Malena Pina NP Pap, reflex HPV 01/10/2025 8:00 AM PARK INTERPRETIVE RANGER Office Visit Joselito Munoz [address] [place] [address] Malena Pina NP Well woman exam (Primary Dx); Screening mammogram for breast cancer from Last 3 Months Immunizations Immunization Administration [...] on file Legal Sex Female 10:10 AM PARK INTERPRETIVE RANGER Gender Identity Female 03/29/2020 10:19 PM PARK INTERPRETIVE RANGER Sexual Orientation Straight 10/14/2019 6: 14 PM [...] Comments Blood Pressure 116/74 01/10/2025 8:13 AM PARK INTERPRETIVE RANGER Pulse 82 01/10/2025 8:13 AM PARK INTERPRETIVE RANGER Temperature 36.8 C (98.3 F) 05/18/2024 7:56 AM CDT Respiratory Rate 12 09/07/2024 11:16 AM CDT Oxygen Saturation 98% 01/10/2025 8:13 AM PARK INTERPRETIVE RANGER Inhaled Oxygen Concentration - - Weight 66.7 kg (147 lb) 01/10/2025 8:13 AM PARK INTERPRETIVE RANGER Height 160 cm (5' 3) 01/10/2025 8:13 AM PARK INTERPRETIVE RANGER Body Mass Index 26.04 01/10/2025 8:13 AM PARK INTERPRETIVE RANGER Plan of Treatment Health Maintenance Due Date [...] 01/10/2026 01/10/2025, 05/18/2024, 01/05/2024, Additional history exists Colon Cancer Screening-Colonoscopy 11/08/2029 11/09/2019, 11/09/2019 Cervical Cancer Screening 01/10/20302024, 01/05/2024, 12/31/2022, Additional history exists DTaP/Tdap/Td Vaccine (3 - Td or Tdap) [...] PAP, REFLEX HPV Routine 01/10/2025 8:55 AM PARK INTERPRETIVE RANGER Well woman exam SCREENING MAMMOGRAM BILATERAL W SEAN Schedule Routine, Read Routine (OP Routine) 02/16/2024 1:34 PM PARK INTERPRETIVE RANGER Encounter for screening mammogram for malignant neoplasm of breast HEPATITIS C ANTIBODY Routine 04/03/2020 10:50 AM PARK INTERPRETIVE RANGER COLONOSCOPY 11/09/2019 2:57 PM CDT from Last 3 Months or Most Recently Relevant to Health Maintenance Results * Pap, reflex HPV (01/10/2025 8:55 AM PARK INTERPRETIVE RANGER) CLINICAL INFORMATION: Bela Faria Comment:WELL WOMAN EXAM LMP Bela DiagnosticsBrinda Faria Comment:ABLATION Previous Pap Bela Faria Comment:NONE GIVEN Prev. Bx Bela Faria Comment:NONE GIVEN SOURCE: Bela Faria Comment:Cervix, Endocervix Pap, specimen adequacy Bela Faria Comment:SATISFACTORY FOR JARROD LUATION HPV interp Bela Faria Comment: Cytology Results: Negative for intraepithelial lesion or malignancy. Atrophic pattern; predominantly parabasal cells COMMENTS Bela Faria Comment: This Pap test has been evaluated with the ThinPrep(R) Imaging System. Polysomnographic Tech Zbigniew Gonzáles Comment: TLS, CT(ASCP) CT Screening Location: [facility] [place] [address] Administration [place] [address] CLIA: [id number] Slide preparation performed at: [facility], [address] [place] [address], [address] CLIA: [id number] Comment Bela Faria Comment: EXPLANATORY NOTE: The [...] clinical information. Thin prep 01/10/2025 8:55 AM PARK INTERPRETIVE RANGER 01/11/2025 7:22 PM PARK INTERPRETIVE RANGER Malena Pina SCHOOL OFFICE ASSISTANT LAB CYTOLOGY ORDERABLES Fin al Result [facility] [address] [address] [place] [address] * Screening Mammogram Bilateral W Sean (02/16/2024 1:34 PM PARK INTERPRETIVE RANGER) Anatomical Region Laterality Modality Breast Bilateral Mammography 02/20/2024 9:48 AM PARK INTERPRETIVE RANGER Impressions 02/20/2024 9:48 AM PARK INTERPRETIVE RANGER No evidence of malignancy in either breast. FINAL ASSESSMENT: BI-RADS Category 2: Benign. RECOMMENDATION: Recommend return for annual screening mammogram in 12 months. Electronically signed by: Marty Grace M.D. Narrative 02/20/2024 9:48 AM PARK INTERPRETIVE RANGER EXAMINATION: BILATERAL SCREENING MAMMOGRAM COMPARISON: Mammograms from [facility] dated 02/06/2023, 02/01/2022, and 12/04/2020 TECHNIQUE: Full-field 2D and digital breast tomosynthesis (DBT) images were obtained. CAD was utilized. BREAST PARENCHYMAL COMPOSITION: There are scattered areas of fibroglandular density. FINDINGS: Multiple small benign-appearing masses with circumscribed margins in both breasts have not suspiciously changed. There is no new suspicious finding in either breast on mammogram. us Malena Pina SCHOOL OFFICE ASSISTANT IMG MAMMO PROCEDURES Final Result * Hepatitis C antibody (04/03/2020 10:50 AM PARK INTERPRETIVE RANGER) Hep C Ab NON-REACTI VE NON-REACT LISA [facility] SIGNAL TO CUT-OFF 0.02 <1.00 [facility] Comment: HCV antibody was non-reactive. There is no laboratory evidence of HCV infection. In most cases, no further action is required. However, if recent HCV exposure is suspected, a test for HCV RNA (test code 67248) is suggested. For additional information please refer to http://education.N2Care/faq/UIW42k3 (This link is being provided for informational/ educational purposes only.) 04/03/2020 10:5 0 AM PARK INTERPRETIVE RANGER 04/03/2020 10:53 AM PARK INTERPRETIVE RANGER Narrative [facility] - 04/04/2020 10:12 AM PARK INTERPRETIVE RANGER FASTING:YES FASTING: YES Tana Hester DO LAB MICROBIOLOGY - GENERAL ORDERABLES Final Result [facility] [address] [address] [place] [address] * COLONOSCOPY (11/09/2019 2:57 PM CDT) Anatomical Region Laterality Modality Other Narrative Procedure Note Gume Irvin MD - 11/09/2019 2:57 PM CDT [facility] Patient Name: Casie Barnes Procedure Date: 11/09/2019 2:57 PM Date of : 1965 Admit Type: Outpatient Age: 54 Gender: Female Attending MD: Gume Irvin M.D. Room: [facility] ENDOSCOPY ROOM 1 Note Status: Finalized Patient [...] passed under direct vision.The Pediatric Colonoscope [id number]-H190L [id number] was introduced through the anus and advanced [...] 2:57 PM Procedure Code(s): --- Professional --- 96331, Colonoscopy, flexible; diagnostic, including collection of specimen(s) by brushing or washing, when performed (separateprocedure) Diagnosis Code(s): --- Professional --- Z12.11, Encounter for screening for malignant neoplasm of colon K64.8, Other hemorrhoids CPT copyright 2017 [employer]. All rights reserved. The codes documented in this report are preliminary and upon rice field worker reviewmay be revised to meet current compliance requirements. Recognized by the [employer] for promoting quality in endoscopy Gume Irvin MD ENDOSCOPY PROCEDURES Final Result from Last 3 Months or Most Recently Relevant to Health Maintenance Insurance [employer] Address: [facility] [id number] [place] [id number] [employer] Address: [facility] [id number] [place] [address] Advance Directives For more information, please contact: [phone] * Full Code (Latest Code Status on File) Date Activated Date Inactivated Comments 11/09/2019 1:37 PM 11/09/2019 8:22 PM * Full Code Date Activated Date Inactivated Comments 11/09/2019 1:37 PM 11/09/2019 1:37 PM Care Teams Head Field Hockey Coach Relationship Specialty Start Date End Date Liliane Mccabe MD [address] [place] [address] [place] [address] PCP - General Family Medicine 11/07/23 Anca Watkins MD [address] [place] [address] Consulting Physician Psychiatry 03/10/19 Avery Moreno MD [address] [place] [address] [place] [address] Buffing Machine Operator Obstetrics and Gynecology 03/10/19 Rob Vaughn MD [address] [place] [address] [place] [address] Anesthesiologist Pain Management 04/10/22
--- OUTSIDE RECORDS SUMMARY | 2025-02-07 12:30 | XMS_ITS | Clinical Summary ---
Author Organization [employer] [facility] Address [address] [place] [address] Care Team Providers Care Marketing Designer Name Role Phone Tana Hesterban TEJADA Primary Care Provider [phone] Allergies No known active allergies Medications esomeprazole (NexIUM) 20 mg Capsule, Delayed Release(E.C.) Take one capsule by mouth once daily as needed 90 Capsule 1 04/17/2018 7:10 AM CHIEF MEDICAL PHYSICIST 9 Active halobetasol propionate (ULTRAVATE) 0.05 % [...] 4 days. 4 Tablet 02/20/2021 7:01 AM CHIEF MEDICAL PHYSICIST 1 Active valACYclovir (VALTREX) 1 gram tablet Take 1 Tablet (1,000 mg) by mouth daily. 30 Tablet 2 01/31/2022 5:43 PM CHIEF MEDICAL PHYSICIST 2 Active doxepin (SILENOR) 3 mg Tablet Take 1 Tablet (3 mg) by mouth nightly as needed for sleep. 30 Tablet 4 03/14/2022 5:55 PM CHIEF MEDICAL PHYSICIST 2 Active doxepin (SINEquan) 10 mg capsule Take 1 Capsule (10 mg) by mouth daily at bedtime. 30 Capsule 5 11/25/2021 5:34 PM CDT 2 Active meloxicam (MOBIC) 15 mg tablet Take 1 Tablet (15 mg) by mouth daily. 30 Tablet 11 03/05/2023 7:01 AM CHIEF MEDICAL PHYSICIST 3 Active modafiniL (PROVIGIL) 200 mg Tablet [...] meals. 60 Capsule 3 01/31/2023 7:04 AM CHIEF MEDICAL PHYSICIST 3 Active cyclobenzaprine (FLEXERIL) 10 mg tablet Take 1 Tablet (10 mg) by mouth 2 times daily as needed for muscle spasm. 30 Tablet 10/25/2022 7:26 AM CDT 3 Active traZODone (DESYREL) 50 mg tablet Take One-Half to 1 Tablet (25-50 mg) by mouth nightly as needed for sleep 90 Tablet 1 01/31/2023 7:04 AM CHIEF MEDICAL PHYSICIST 3 Active metoclopramide HCl (REGLAN) 10 mg [...] Active Immunizations Immunization Administration Dates Next Due (FitWithMe)(12 YR UP) COVID-19 VACCINE - EMERGENCY USE AUTHORIZATION, MRNA, [id number](PF) 30 MCG/0.3 ML IM SUSP 02/29/2020,02/07/2020 Influenza [...] OR WO CAD Routine 02/06/2023 8:13 AM CHIEF MEDICAL PHYSICIST Breast cancer screening by mammogram from Last 3 Months or Most Recently Relevant to Health Maintenance Results * MAMMO 3D LAURA SCREEN BILAT W OR WO CAD (02/06/2023 8:13 AM CHIEF MEDICAL PHYSICIST) Anatomical Region Laterality Modality Breast Bilateral Mammography 02/06/2023 8:13 AM CHIEF MEDICAL PHYSICIST Impressions 02/06/2023 12:23 PM CHIEF MEDICAL PHYSICIST IMPRESSION: No mammographic evidence of malignancy. OVERALL FINAL ASSESSMENT: BI-RADS CATEGORY 1: Negative RECOMMENDATIONS: Annual screening. The above findings should be correlated with physical examination. A relatively nonspecific study should not preclude additional evaluation if suspicious findings are present clinically. An [employer] certified facility. DICTATION LOCATION: [facility] Narrative 02/06/2023 12:23 PM CHIEF MEDICAL PHYSICIST MAMMOGRAMS SCREENING DIGITAL BILATERAL WITH CAD AND [...] if suspicious findings are present clinically. An [employer] certified facility. DICTATION LOCATION: [facility] Malena Pina NP MAMMO ORDERABLES Final Resul t from Last 3 Months or Most Recently Relevant to Health Maintenance Insurance RX [employer] Commercial RX [employer] (INTERNAL) [facility] [employer] RX [employer] Commercial RX [facility] [employer] Care Teams Marketing Designer Relationship Specialty Start Date End Date Tana Hester DO PCP - General Family Practice 10/19/19
--- OUTSIDE RECORDS SUMMARY | 2025-02-07 12:30 | XMS_ITS | Encounter Summary ---
Author Organization [facility] Address [address] [place] [address] Care Team Providers Care Middleware Solutions Architect Name Role Phone Tana Hester DO Primary Care Provider [phone] Encounter Details Date Type Department Care Team (Late st Contact Info) Description 02/14/2021 Lab Requisition [facility] [address] [place] [address] [place] [address] [facility] [address] [place] [address] Social History Tobacco Use Types Packs/Day Years [...] (COVID-19) PCR DETECTION Routine 02/14/2021 9:15 PM SEXTON HELPER documented in this encounter Results * 2019 NOVEL CORONAVIRUS (COVID-19) PCR DETECTION (02/14/2021 9:15 PM SEXTON HELPER) COVID-19 PCR NOT DETECTED Not Detected 02/15/19 2:10 AM SEXTON HELPER [facility] PERFORMING LAB [facility] 02/15/2021 2:10 AM SEXTON HELPER [facility] Upper Respiratory Collection / Unknown 02/14/2021 9:15 PM SEXTON HELPER 02/14/2021 9:25 PM SEXTON HELPER Narrative [facility] - 02/15/2021 2:10 AM SEXTON HELPER This test has been authorized by the [...] MICROBIOLOGY - GENERAL ORDER STEVEN Final Result [facility] CLIA# [id number] [address] [place] [address] documented in this encounter Visit Diagnoses Not on filedocumented in this encounter Care Teams Middleware Solutions Architect Relationship Specialty Start Date End Date Tana Hester DO PCP - General Family Practice 10/19/19 documented as of this encounter
--- OUTSIDE RECORDS SUMMARY | 2025-02-07 12:30 | XMS_ITS | Clinical Summary ---
Author Organization [facility] Address [address] [place] [address] Phone Care Team Providers Care Battery Mechanic Name Role Phone Unavailable Primary Care Provider [...] complete this topic Human Papillomavirus (HPV) Immunization (No Doses Required) Completed Meningococcal Immunization (ACWY) Aged Out No longer [...] Relevant to Health Maintenance Insurance [facility]
== END 2025-02-07 12:01 | disposition home or self-care (01) ==
PROVIDERS: PCP Family Medicine; Visit Provider Physician Assistant Surgical
DX: R60.0 Localized edema (principal)
CPT/HCPCS: 93971